=== PATIENT | male | born 1955 | race Caucasian/White ===

== ENCOUNTER 2017-05-11 10:46 | Day surgery (SDC) | payer MEDICARE, MEDICAID ==
[2017-05-11] VITALS (8 sets, daily range): BP systolic 95–163; BP diastolic 59–92
[~2017-05-11 10:46] MED LIST: ALB0.5UD IH; FURO80TA3 PO; GABA-532 PO; LABE200T PO; LEVO200T8 PO; NOVRI SQ; NPH,100V2 SQ; PRAV20TA4 PO; QUET100T33 PO; TRAZ150T78 PO
[2017-05-11] MEDS ORDERED: normal saline 1000ml 1,000 ML IV SCH (11:20)
[2017-05-11] MEDS ORDERED: CALC667T5 PO (12:10)
[2017-05-11] MEDS ORDERED: METO-292 PO (12:10)
[2017-05-11 12:22] LABS: BASOPHILS # (AUTO) 0.1 X10'3 (0-0.2); BASOPHILS % (AUTO) 0.7 % (0-1); EOSINOPHILS # (AUTO) 0.2 X10'3 (0-0.9); EOSINOPHILS % (AUTO) 3.1 % (0-6); HEMOGLOBIN 13.3 g/dl (14.0-17.9); LYMPHOCYTES # (AUTO) 1.6 X10'3 (1.1-4.8); LYMPHOCYTES % (AUTO) 22.1 % (21-51); MEAN CORPUSCULAR HEMOGLOBIN 30.9 PG (27.0-31.0); MEAN CORPUSCULAR HGB CONC 33.2 % (33.0-36.5); MEAN PLATELET VOLUME 8.9 FL (7.4-10.4); MONOCYTES # (AUTO) 0.4 X10'3 (0-0.9); MONOCYTES % (AUTO) 5.8 % (2-12); NEUTROPHILS # (AUTO) 4.9 X10'3 (1.8-7.7); NEUTROPHILS % (AUTO) 68.3 % (42-75); PLATELET COUNT 152 X10'3 (140-440); WHITE BLOOD COUNT 7.2 X10'3 (4.5-11.0)
[2017-05-11] MEDS ORDERED: midazolam 2 mg/2 ml injection IV PRN (13:00)
[2017-05-11] MEDS ORDERED: fentaNYL/PF 50MCG/1 ML 2ML syringe IV PRN (13:00)
[2017-05-11] MEDS ORDERED: LIDOcaine 1%/PF (10mg/ml) 5ml vial SQ ONE (13:00)
[2017-05-11] MEDS ORDERED: LIDOcaine 1%/PF (10mg/ml) 5ml vial ONE (13:02)
[2017-05-11] MEDS ORDERED: iohexol 300mg/ml 100ml inj. ONE (13:02)
[2017-05-11] MEDS ORDERED: fentaNYL/PF 50MCG/1 ML 2ML syringe ONE ×2 (13:20→14:05)
[2017-05-11] MEDS ORDERED: heparin 1,000 UNITS/NS 500ml 500 ML ONE (13:20)
[2017-05-11] MEDS ORDERED: midazolam 2 mg/2 ml injection ONE ×2 (13:20→14:05)
== END 2017-05-11 16:07 | disposition home or self-care (01) ==
LOC: SSTAY O 10:46
PROVIDERS: ATTEND Radiology Diagnostic Radiology
DX: Z03.89 Encounter for observation for other suspected diseases and conditions ruled out (principal); E11.22 Type 2 diabetes mellitus with diabetic chronic kidney disease; N18.6 End stage renal disease; F32.9 Major depressive disorder, single episode, unspecified; F41.9 Anxiety disorder, unspecified; Z88.5 Allergy status to narcotic agent; Z99.2 Dependence on renal dialysis; Z79.899 Other long term (current) drug therapy
CPT/HCPCS: 36415; 36901; 76937; 85025; 99152; 99153; A6257; C1769; C1894; J1644; J2001; J2250; J3010; J7030; Q9967; A4620

== ENCOUNTER 2017-05-25 08:35 | Outpatient (CLI) | payer MEDICARE, MEDICAID ==
[~2017-05-25] VITALS: Ht 195.6 cm; Wt 72.6 kg
[~2017-05-25 08:35] MED LIST changes: -ALB0.5UD IH; +CALC667T5 PO; -GABA-532 PO; +METO-292 PO; -NOVRI SQ; -NPH,100V2 SQ
[2017-05-25] MEDS ORDERED: INSULIN NPH SQ (09:43)
[2017-05-25] MEDS ORDERED: INSU100V30 SQ (09:43)
[2017-05-25] MEDS ORDERED: ALB0.5UD IH (09:43)
[2017-05-25] MEDS ORDERED: LORA1TAB PO (09:43)
[2017-05-25] MEDS ORDERED: GABA-532 PO (09:43)
[2017-05-25] MEDS ORDERED: INSULIN N PO (09:43)
[2017-05-25 09:56] LABS: BASOPHILS # (AUTO) 0.1 X10'3 (0-0.2); BASOPHILS % (AUTO) 1.2 % (0-1); EOSINOPHILS # (AUTO) 0.2 X10'3 (0-0.9); EOSINOPHILS % (AUTO) 2.6 % (0-6); LYMPHOCYTES # (AUTO) 1.5 X10'3 (1.1-4.8); LYMPHOCYTES % (AUTO) 21.1 % (21-51); MEAN CORPUSCULAR HEMOGLOBIN 30.8 PG (27.0-31.0); MEAN CORPUSCULAR VOLUME 93.5 FL (78-98); MONOCYTES # (AUTO) 0.4 X10'3 (0-0.9); MONOCYTES % (AUTO) 6.1 % (2-12); PRE OP HEMATOCRIT 38.8 % (42.0-52.0); PRE OP HEMOGLOBIN 12.8 g/dL (14.0-17.9); PRE OP PLATELET COUNT 128 X10'3 (140-440); RED BLOOD COUNT 4.15 X10'6 (4.70-6.10)
[2017-05-25 10:06] LABS: HEMOGLOBIN A1C 6.1 % (4.5-6.2)
[2017-05-25 10:10] LABS: ALBUMIN 3.4 G/DL (3.4-5.0); ALKALINE PHOSPHATASE 79 IU/L (46-116); BLOOD UREA NITROGEN 25 MG/DL (7-18); BUN/CREATININE RATIO 5.6 (5.4-32.0); CALCIUM 8.5 MG/DL (8.5-10.1); CHLORIDE 102 MMOL/L (99-107); CREATININE 4.45 MG/DL (0.60-1.10); PRE OP ALT 23 U/L (30-65); PRE OP ANION GAP 7 (8-16); PRE OP AST 17 U/L (10-37); PRE OP BILIRUB, TOTAL 0.6 MG/DL (0.0-1.0); PRE OP GLUCOSE 157 MG/DL (70-104); PRE OP POTASSIUM 4.8 MMOL/L (3.4-5.1); PRE OP SODIUM 144 MMOL/L (135-145); TOTAL CARBON DIOXIDE 34.8 MMOL/L (24-32); TOTAL PROTEIN 6.8 G/DL (6.4-8.2); eGFR 14 ML/MIN
[2017-05-27] MEDS ORDERED: ringers solution, lacted 1,000 ML IV SCH (05:00)
[2017-05-27] MEDS ORDERED: famotidine 20mg tablet PO ONE (05:30)
[2017-05-27] MEDS ORDERED: cefazolin/dext.iso 2gm/50ml 50 ML IV ONE (05:30)
[2017-05-27] MEDS ORDERED: DOCUMENT DATE & TIME OF BETA-BLOCKER PO ONE (05:30)
== END 2017-05-25 23:59 | disposition home or self-care (01) ==
LOC: PRE-OP 08:35 → EDSTATUS 05-27 14:00
PROVIDERS: ATTEND Surgery
DX: Z01.818 Encounter for other preprocedural examination (principal); N18.6 End stage renal disease; E11.9 Type 2 diabetes mellitus without complications; D64.9 Anemia, unspecified; J45.909 Unspecified asthma, uncomplicated; E03.9 Hypothyroidism, unspecified; F12.90 Cannabis use, unspecified, uncomplicated
CPT/HCPCS: 36415; 80053; 83036; 85025

== ENCOUNTER 2018-01-14 13:38 | Emergency (ER) | payer MEDICARE, MEDICAID ==
[~2018-01-14] VITALS: Ht 195.6 cm; Wt 172.0 kg
[~2018-01-14 13:38] MED LIST changes: +ALB0.5UD IH; -CALC667T5 PO; +GABA-532 PO; +INSU100V30 SQ; +INSULIN NPH SQ; -LABE200T PO; +LABE200T5 PO; +LORA1TAB PO; -METO-292 PO
[2018-01-14 14:30] LABS: BASOPHILS % (AUTO) 0.5 % (0-1); EOSINOPHILS # (AUTO) 0.3 X10'3 (0-0.9); EOSINOPHILS % (AUTO) 3.3 % (0-6); HEMATOCRIT 36.2 % (42.0-52.0); HEMOGLOBIN 11.9 g/dl (14.0-17.9); LYMPHOCYTES # (AUTO) 1.2 X10'3 (1.1-4.8); LYMPHOCYTES % (AUTO) 14.3 % (21-51); MEAN CORPUSCULAR HEMOGLOBIN 31.1 PG (27.0-31.0); MEAN CORPUSCULAR HGB CONC 32.9 % (33.0-36.5); MEAN CORPUSCULAR VOLUME 94.5 FL (78-98); MEAN PLATELET VOLUME 8.6 FL (7.4-10.4); MONOCYTES # (AUTO) 0.5 X10'3 (0-0.9); MONOCYTES % (AUTO) 6.2 % (2-12); NEUTROPHILS # (AUTO) 6.3 X10'3 (1.8-7.7); NEUTROPHILS % (AUTO) 75.7 % (42-75); PLATELET COUNT 151 X10'3 (140-440); RED BLOOD COUNT 3.83 X10'6 (4.70-6.10); RED CELL DISTRIBUTION WIDTH 14.1 % (11.5-14.5); WHITE BLOOD COUNT 8.3 X10'3 (4.5-11.0)
[2018-01-14 14:48] LABS: ALANINE AMINOTRANSFERASE 25 U/L (12-78); ALBUMIN 3.4 G/DL (3.4-5.0); ALBUMIN/GLOBULIN RATIO 0.9 (1.1-1.5); ALKALINE PHOSPHATASE 72 IU/L (46-116); ANION GAP 3 (8-16); ASPARTATE AMINO TRANSFERASE 16 U/L (10-37); BILIRUBIN,TOTAL 0.8 MG/DL (0.1-1.0); BLOOD UREA NITROGEN 11 MG/DL (7-18); CALCIUM 8.7 MG/DL (8.5-10.1); CHLORIDE 99 MMOL/L (99-107); CREATININE 2.62 MG/DL (0.60-1.10); ETHANOL < 0.010 GM/DL (0.0-0.010); GLUCOSE 200 MG/DL (70-104); SODIUM 140 MMOL/L (135-145); TOTAL CARBON DIOXIDE 38.3 MMOL/L (24-32); TOTAL PROTEIN 7.2 G/DL (6.4-8.2); eGFR 25 ML/MIN
[2018-01-14 14:52] LABS: BUN/CREATININE RATIO 4.2 (5.4-32.0)
[2018-01-14] MEDS ORDERED: albuterol 2.5 MG/3 ML nebule ONE (17:49)
[2018-01-14] MEDS ORDERED: albuterol 2.5 MG/3 ML nebule NEB PRN (17:55)
[2018-01-14 17:58] VITALS: BP 132/60
[2018-01-14] MEDS ORDERED: LORazepam 1 MG tablet PO PRN ×2 (19:35)
[2018-01-14] MEDS ORDERED: albuterol 2.5 mg/0.5ml nebule NEB PRN (19:35)
[2018-01-14] MEDS ORDERED: traZODone 150mg tablet PO PRN (19:35)
[2018-01-14] MEDS ORDERED: FUROSEMIDE 80 MG PO SCH (20:00)
[2018-01-14] MEDS ORDERED: furosemide 40mg tablet PO SCH (20:00)
[2018-01-14] MEDS ORDERED: quetiapine 100mg tablet PO SCH (21:00)
[2018-01-14] MEDS ORDERED: levoTHYROXINE 100mcg tablet PO SCH (21:00)
[2018-01-14] MEDS ORDERED: gabapentin 300mg capsule PO SCH (21:00)
[2018-01-14] MEDS ORDERED: non-formulary drug (Pravastatin Sodium 20 MG) PO SCH (21:00)
[2018-01-14] MEDS ORDERED: NPH, human insulin isophane inj. SQ SCH (21:00)
[2018-01-14] MEDS ORDERED: atorvastatin 10mg tablet PO SCH (21:00)
[2018-01-14] MEDS ORDERED: INSULIN NPH SQ SCH (21:00)
== END 2018-01-14 20:26 ==
LOC: ER 13:38
DX: F32.9 Major depressive disorder, single episode, unspecified (principal); R45.851 Suicidal ideations; N18.6 End stage renal disease; E11.22 Type 2 diabetes mellitus with diabetic chronic kidney disease; E11.42 Type 2 diabetes mellitus with diabetic polyneuropathy; E11.65 Type 2 diabetes mellitus with hyperglycemia; G89.29 Other chronic pain; J45.909 Unspecified asthma, uncomplicated; Z88.5 Allergy status to narcotic agent; Z79.4 Long term (current) use of insulin; Z79.899 Other long term (current) drug therapy
CPT/HCPCS: 36415; 80053; 80320; 82948; 85025; 94640; 94760; 99285; J7611

== ENCOUNTER 2018-01-14 18:18 | Inpatient (IN) | payer MEDICARE, MEDICAID ==
[~2018-01-14] VITALS: Ht 195.6 cm; Wt 172.4 kg
[2018-01-14] MEDS ORDERED: pravastatin 10mg tablet PO ONE (21:35)
[2018-01-14] MEDS ORDERED: traZODone 150mg tablet PO ONE (21:35)
[2018-01-14] MEDS ORDERED: quetiapine 100mg tablet PO ONE (21:35)
[2018-01-14] MEDS ORDERED: LORazepam 1 MG tablet PO PRN (21:35)
[2018-01-14] MEDS ORDERED: gabapentin 300mg capsule PO ONE (21:35)
[2018-01-14] MEDS ORDERED: atorvastatin 10mg tablet PO ONE (21:50)
[2018-01-15] MEDS ORDERED: LORazepam 1 MG tablet PO PRN (00:20)
[2018-01-15 00:47] VITALS: BP 145/61
[2018-01-15] MEDS ORDERED: acetaminophen 325mg tablet PO PRN (03:15)
[2018-01-15] MEDS ORDERED: glucagon, human recombinant 1mg kit SUBCUT PRN (03:15)
[2018-01-15] MEDS ORDERED: MESSAGE TO PHARMACY PO ONE (03:15)
[2018-01-15] MEDS ORDERED: insulin Lispro (HumaLOG) vial - multi-dose SQ SCH ×3 (03:15→14:04)
[2018-01-15] MEDS ORDERED: dextrose ORAL solution 15 GM/59 ML bottle PO PRN ×2 (03:15)
[2018-01-15] MEDS ORDERED: dextrose 50%-water 50ml dispensing syringe IV PRN ×2 (03:15)
[2018-01-15] MEDS ORDERED: quetiapine 100mg tablet PO SCH (08:00)
[2018-01-15] MEDS: levoTHYROXINE 100mcg tablet PO SCH (08:02)
[2018-01-15] MEDS: furosemide 40mg tablet PO SCH ×2 (08:02→20:49)
[2018-01-15 08:05] VITALS: BP 131/61
[2018-01-15] MEDS: LORazepam 1 MG tablet PO PRN (09:34)
[2018-01-15] MEDS: albuterol 2.5 MG/3 ML nebule NEB PRN ×2 (09:46→22:04)
[2018-01-15] MEDS: insulin Lispro (HumaLOG) vial - multi-dose SQ SCH ×2 (14:16→18:42)
[2018-01-15] MEDS ORDERED: lurasidone 20mg tablet PO SCH (17:00)
[2018-01-15] MEDS: calcium acetate 667mg (PhosLO) capsule PO SCH (18:47)
[2018-01-15 20:00] VITALS: BP 166/69
[2018-01-15] MEDS: NPH, human insulin isophane inj. SQ SCH (20:42)
[2018-01-15] MEDS: baclofen 10mg tablet PO PRN (20:49)
[2018-01-15] MEDS: gabapentin 300mg capsule PO SCH (20:49)
[2018-01-15] MEDS: traZODone 150mg tablet PO PRN (20:50)
[2018-01-15] MEDS: pravastatin 40mg tablet PO SCH (20:50)
[2018-01-15 20:57] LABS: BASOPHILS # (AUTO) 0.1 X10'3 (0-0.2); BASOPHILS % (AUTO) 1.4 % (0-1); EOSINOPHILS # (AUTO) 0.2 X10'3 (0-0.9); EOSINOPHILS % (AUTO) 2.2 % (0-6); HEMATOCRIT 34.1 % (42.0-52.0); HEMOGLOBIN 11.2 g/dl (14.0-17.9); LYMPHOCYTES # (AUTO) 1.8 X10'3 (1.1-4.8); LYMPHOCYTES % (AUTO) 16.9 % (21-51); MEAN CORPUSCULAR HEMOGLOBIN 30.9 PG (27.0-31.0); MEAN CORPUSCULAR HGB CONC 32.7 % (33.0-36.5); MEAN CORPUSCULAR VOLUME 94.5 FL (78-98); MEAN PLATELET VOLUME 8.9 FL (7.4-10.4); MONOCYTES # (AUTO) 0.6 X10'3 (0-0.9); MONOCYTES % (AUTO) 5.9 % (2-12); NEUTROPHILS # (AUTO) 7.7 X10'3 (1.8-7.7); NEUTROPHILS % (AUTO) 73.6 % (42-75); PLATELET COUNT 142 X10'3 (140-440); RED BLOOD COUNT 3.61 X10'6 (4.70-6.10); RED CELL DISTRIBUTION WIDTH 14.3 % (11.5-14.5); WHITE BLOOD COUNT 10.4 X10'3 (4.5-11.0)
[2018-01-15] MEDS ORDERED: insulin glargine (Lantus) pen - multi-dose SQ SCH (21:00)
[2018-01-15] MEDS ORDERED: [UNRECOGNIZED DRUG - OTHER] PO SCH (21:00)
[2018-01-15] MEDS ORDERED: quetiapine 100mg tablet PO PRN (21:00)
[2018-01-15 21:11] LABS: ALBUMIN 3.2 G/DL (3.4-5.0); ANION GAP 4 (8-16); BLOOD UREA NITROGEN 39 MG/DL (7-18); BUN/CREATININE RATIO 8.2 (5.4-32.0); CALCIUM 8.5 MG/DL (8.5-10.1); CHLORIDE 95 MMOL/L (99-107); CREATININE 4.75 MG/DL (0.60-1.10); GLUCOSE 222 MG/DL (70-104); PHOSPHORUS 4.1 MG/DL (2.3-4.5); POTASSIUM 4.2 MMOL/L (3.5-5.1); SODIUM 135 MMOL/L (135-145); TOTAL CARBON DIOXIDE 35.9 MMOL/L (24-32); eGFR 13 ML/MIN
[2018-01-16] MEDS: furosemide 40mg tablet PO SCH ×2 (07:43→21:18)
[2018-01-16] MEDS: levoTHYROXINE 100mcg tablet PO SCH (07:43)
[2018-01-16 08:00] VITALS: BP 128/57
[2018-01-16] MEDS: calcium acetate 667mg (PhosLO) capsule PO SCH ×3 (08:18→17:43)
[2018-01-16] MEDS: insulin Lispro (HumaLOG) vial - multi-dose SQ SCH ×4 (09:00→21:11)
[2018-01-16 09:30] LABS: CHOL/HDL RATIO 4.3 (0.00-4.99); CHOLESTEROL 134 MG/DL (0-200); HDL CHOLESTEROL 31 MG/DL (35-60); LDL CHOLESTEROL 81 MG/DL (50-100); TRIGLYCERIDES 122 MG/DL (20-135)
[2018-01-16] MEDS ORDERED: acetaminophen 325mg tablet PO PRN (13:05)
[2018-01-16] MEDS: LORazepam 1 MG tablet PO PRN (13:13)
[2018-01-16] MEDS: lurasidone 60mg tablet PO SCH (17:43)
[2018-01-16 20:00] VITALS: BP 169/73
[2018-01-16] MEDS: NPH, human insulin isophane inj. SQ SCH (21:10)
[2018-01-16] MEDS: traZODone 150mg tablet PO PRN (21:18)
[2018-01-16] MEDS: baclofen 10mg tablet PO PRN (21:18)
[2018-01-16] MEDS: gabapentin 300mg capsule PO SCH (21:18)
[2018-01-16] MEDS: pravastatin 40mg tablet PO SCH (21:22)
[2018-01-17] MEDS: furosemide 40mg tablet PO SCH ×2 (07:38→21:24)
[2018-01-17] MEDS: levoTHYROXINE 100mcg tablet PO SCH (07:38)
[2018-01-17 08:00] VITALS: BP 146/77
[2018-01-17] MEDS ORDERED: albumin (human) 25% 100ml IV 100 ML IV PRN (08:00)
[2018-01-17] MEDS ORDERED: heparin 1,000unit/ml 10ml vial 10 ML IV ONE (08:00)
[2018-01-17] MEDS ORDERED: heparin 1,000 units/ml 10ml inj IV ONE (08:00)
[2018-01-17] MEDS: calcium acetate 667mg (PhosLO) capsule PO SCH ×3 (08:00→19:16)
[2018-01-17] MEDS: insulin Lispro (HumaLOG) vial - multi-dose SQ SCH ×3 (08:50→18:00)
[2018-01-17] MEDS: LORazepam 1 MG tablet PO PRN ×2 (09:58→19:29)
[2018-01-17] MEDS ORDERED: LORazepam 1 MG tablet PO ONE (13:45)
[2018-01-17] MEDS: lurasidone 60mg tablet PO SCH (19:16)
[2018-01-17] MEDS: baclofen 10mg tablet PO PRN (19:24)
[2018-01-17 20:11] VITALS: BP 113/68
[2018-01-17] MEDS ORDERED: buprenorphine/naloxone 2-0.5mg sublingual tablet SL SCH (21:00)
[2018-01-17] MEDS: pravastatin 40mg tablet PO SCH (21:25)
[2018-01-17] MEDS: gabapentin 300mg capsule PO SCH (21:25)
[2018-01-17] MEDS: NPH, human insulin isophane inj. SQ SCH (21:32)
[2018-01-17] MEDS ORDERED: buprenorphine/naloxone 2-0.5mg sublingual tablet SL ONE (22:00)
[2018-01-18] VITALS (9 sets, daily range): BP systolic 100–168; BP diastolic 48–83
[2018-01-18] MEDS ORDERED: clotrimazole/betamethasone diproprion. cream 15gm TP SCH (08:00)
[2018-01-18] MEDS ORDERED: duloxetine 30mg CAPSULE.DR PO SCH (08:00)
[2018-01-18 08:49] LABS: BASOPHILS # (AUTO) 0.1 X10'3 (0-0.2); BASOPHILS % (AUTO) 0.5 % (0-1); EOSINOPHILS # (AUTO) 0.3 X10'3 (0-0.9); EOSINOPHILS % (AUTO) 2.7 % (0-6); HEMATOCRIT 35.5 % (42.0-52.0); LYMPHOCYTES # (AUTO) 1.6 X10'3 (1.1-4.8); LYMPHOCYTES % (AUTO) 14.3 % (21-51); MEAN CORPUSCULAR HEMOGLOBIN 31.7 PG (27.0-31.0); MEAN CORPUSCULAR HGB CONC 33.7 % (33.0-36.5); MEAN CORPUSCULAR VOLUME 94.1 FL (78-98); MEAN PLATELET VOLUME 9.3 FL (7.4-10.4); MONOCYTES # (AUTO) 0.9 X10'3 (0-0.9); MONOCYTES % (AUTO) 8.3 % (2-12); NEUTROPHILS # (AUTO) 8.4 X10'3 (1.8-7.7); NEUTROPHILS % (AUTO) 74.2 % (42-75); PLATELET COUNT 163 X10'3 (140-440); RED BLOOD COUNT 3.77 X10'6 (4.70-6.10); RED CELL DISTRIBUTION WIDTH 14.6 % (11.5-14.5); WHITE BLOOD COUNT 11.4 X10'3 (4.5-11.0)
[2018-01-18 08:54] LABS: ALANINE AMINOTRANSFERASE 27 U/L (12-78); ALBUMIN 3.4 G/DL (3.4-5.0); ALBUMIN/GLOBULIN RATIO 0.9 (1.1-1.5); ALKALINE PHOSPHATASE 66 IU/L (46-116); ANION GAP 6 (8-16); ASPARTATE AMINO TRANSFERASE 21 U/L (10-37); BILIRUBIN,TOTAL 0.7 MG/DL (0.1-1.0); BLOOD UREA NITROGEN 42 MG/DL (7-18); BUN/CREATININE RATIO 8.2 (5.4-32.0); CALCIUM 8.6 MG/DL (8.5-10.1); CHLORIDE 95 MMOL/L (99-107); CREATININE 5.13 MG/DL (0.60-1.10); GLUCOSE 188 MG/DL (70-104); POTASSIUM 5.5 MMOL/L (3.5-5.1); SODIUM 135 MMOL/L (135-145); TOTAL CARBON DIOXIDE 34.4 MMOL/L (24-32); TOTAL PROTEIN 7.2 G/DL (6.4-8.2); eGFR 12 ML/MIN
[2018-01-18] MEDS ORDERED: glucagon, human recombinant 1mg kit SUBCUT PRN (11:00)
[2018-01-18] MEDS ORDERED: dextrose 50%-water 50ml dispensing syringe IV PRN ×2 (11:00)
[2018-01-18] MEDS ORDERED: dextrose ORAL solution 15 GM/59 ML bottle PO PRN ×2 (11:00)
[2018-01-18] MEDS ORDERED: insulin Lispro (HumaLOG) vial - multi-dose SQ SCH (11:00)
[2018-01-18] MEDS ORDERED: MESSAGE TO PHARMACY PO ONE (11:00)
[2018-01-18] MEDS ORDERED: BUPR1TAB52 SL (20:15)
[2018-01-18] MEDS ORDERED: BACL10TA PO (20:16)
[2018-01-18] MEDS ORDERED: PHO667C PO (20:17)
[2018-01-18] MEDS ORDERED: LURA60TA2 PO (20:18)
[2018-01-18] MEDS ORDERED: TRAZ150T78 PO (20:18)
[2018-01-18] MEDS ORDERED: QUET200T PO (20:19)
[2018-01-18] MEDS ORDERED: insulin glargine (Lantus) pen - multi-dose SQ SCH (21:00)
== END 2018-01-18 08:39 | disposition short-term general hospital (02) | DRG 885 ==
LOC: ADULT MH 18:18
PROVIDERS: ADMIT Psychiatry & Neurology Psychiatry; ATTEND Psychiatry & Neurology Psychiatry
PROC: 5A09357 Assistance with Respiratory Ventilation, Less than 24 Consecutive Hours, Continuous Positive Airway Pressure (ICD-10-PCS; principal; 2018-01-14)
PROC: 5A09357 Assistance with Respiratory Ventilation, Less than 24 Consecutive Hours, Continuous Positive Airway Pressure (ICD-10-PCS; 2018-01-16)
PROC: 5A1D70Z Performance of Urinary Filtration, Intermittent, Less than 6 Hours Per Day (ICD-10-PCS; 2018-01-17)
PROC: 5A09357 Assistance with Respiratory Ventilation, Less than 24 Consecutive Hours, Continuous Positive Airway Pressure (ICD-10-PCS; 2018-01-18)
DX: F33.3 Major depressive disorder, recurrent, severe with psychotic symptoms (principal); N18.6 End stage renal disease; R45.851 Suicidal ideations; Z68.42 Body mass index [BMI] 45.0-49.9, adult; I12.0 Hypertensive chronic kidney disease with stage 5 chronic kidney disease or end stage renal disease; E11.22 Type 2 diabetes mellitus with diabetic chronic kidney disease; F41.9 Anxiety disorder, unspecified; E66.01 Morbid (severe) obesity due to excess calories; Z60.2 Problems related to living alone; G89.29 Other chronic pain; M48.00 Spinal stenosis, site unspecified; D64.9 Anemia, unspecified; F43.10 Post-traumatic stress disorder, unspecified; F11.11 Opioid abuse, in remission; F15.11 Other stimulant abuse, in remission; M54.9 Dorsalgia, unspecified; R34 Anuria and oliguria; G47.33 Obstructive sleep apnea (adult) (pediatric); Z99.2 Dependence on renal dialysis; Z99.3 Dependence on wheelchair; Z79.899 Other long term (current) drug therapy; Z79.4 Long term (current) use of insulin; Z88.5 Allergy status to narcotic agent; Z87.891 Personal history of nicotine dependence
CPT/HCPCS: 36415; 71045; 80053; 80061; 80069; 82948; 83036; 85025; 87070; 94640; 94660; 94760; G0257; J1644; J1815

== ENCOUNTER 2018-01-18 09:38 | Inpatient (IN) | payer MEDICARE, MEDICAID ==
[~2018-01-18] VITALS: Ht 195.6 cm; Wt 172.4 kg
[2018-01-18] MEDS ORDERED: MESSAGE TO PHARMACY PO ONE (11:05)
[2018-01-18] MEDS ORDERED: dextrose ORAL solution 15 GM/59 ML bottle PO PRN ×2 (11:10)
[2018-01-18] MEDS ORDERED: insulin Lispro (HumaLOG) vial - multi-dose SQ SCH (11:10)
[2018-01-18] MEDS ORDERED: dextrose 50%-water 50ml dispensing syringe IV PRN ×2 (11:10)
[2018-01-18] MEDS ORDERED: glucagon, human recombinant 1mg kit SUBCUT PRN (11:10)
[2018-01-18] MEDS ORDERED: ondansetron/PF 4mg/2ml inj IV PRN (14:00)
[2018-01-18] MEDS ORDERED: acetaminophen 325mg tablet PO PRN ×2 (14:00)
[2018-01-18 18:00] VITALS: BP 136/79
[2018-01-18 19:00] VITALS: BP 144/74
[2018-01-18 20:00] VITALS: BP 172/72
[2018-01-18] MEDS: docusate sod 100mg capsule PO SCH (20:00)
[2018-01-18] MEDS ORDERED: BUPR1TAB52 SL (20:15)
[2018-01-18] MEDS ORDERED: BACL10TA PO (20:16)
[2018-01-18] MEDS ORDERED: PHO667C PO (20:17)
[2018-01-18] MEDS ORDERED: LURA60TA2 PO (20:18)
[2018-01-18] MEDS ORDERED: TRAZ150T78 PO (20:18)
[2018-01-18] MEDS ORDERED: QUET200T PO (20:19)
[2018-01-18] MEDS ORDERED: ipratropium/albuterol 3ml nebule NEB PRN (20:25)
[2018-01-18] MEDS: atorvastatin 20mg tablet PO SCH (20:59)
[2018-01-18] MEDS: gabapentin 300mg capsule PO SCH (20:59)
[2018-01-18] MEDS: levoTHYROXINE 100mcg tablet PO SCH (20:59)
[2018-01-18 21:00] VITALS: BP 162/84
[2018-01-18] MEDS: insulin glargine (Lantus) pen - multi-dose SQ SCH (21:00)
[2018-01-18] MEDS ORDERED: lurasidone 60mg tablet PO SCH (21:00)
[2018-01-18] MEDS: heparin, porcine 5000 units/ml vial SQ SCH (21:07)
[2018-01-18 22:00] VITALS: BP 159/66
[2018-01-18 23:00] VITALS: BP 152/78
[2018-01-19] VITALS (22 sets, daily range): BP systolic 97–190; BP diastolic 48–105
[2018-01-19 04:35] LABS: BASOPHILS # (AUTO) 0.1 X10'3 (0-0.2); BASOPHILS % (AUTO) 0.5 % (0-1); EOSINOPHILS # (AUTO) 0.3 X10'3 (0-0.9); EOSINOPHILS % (AUTO) 2.4 % (0-6); HEMATOCRIT 34.8 % (42.0-52.0); HEMOGLOBIN 11.5 g/dl (14.0-17.9); LYMPHOCYTES # (AUTO) 1.6 X10'3 (1.1-4.8); LYMPHOCYTES % (AUTO) 14.4 % (21-51); MEAN CORPUSCULAR HEMOGLOBIN 30.9 PG (27.0-31.0); MEAN CORPUSCULAR VOLUME 93.7 FL (78-98); MEAN PLATELET VOLUME 9.4 FL (7.4-10.4); MONOCYTES # (AUTO) 0.8 X10'3 (0-0.9); MONOCYTES % (AUTO) 7.2 % (2-12); NEUTROPHILS # (AUTO) 8.3 X10'3 (1.8-7.7); NEUTROPHILS % (AUTO) 75.5 % (42-75); PLATELET COUNT 147 X10'3 (140-440); RED BLOOD COUNT 3.72 X10'6 (4.70-6.10); RED CELL DISTRIBUTION WIDTH 14.7 % (11.5-14.5); WHITE BLOOD COUNT 10.9 X10'3 (4.5-11.0)
[2018-01-19 04:43] LABS: ALANINE AMINOTRANSFERASE 27 U/L (12-78); ALBUMIN 3.2 G/DL (3.4-5.0); ALBUMIN/GLOBULIN RATIO 0.9 (1.1-1.5); ALKALINE PHOSPHATASE 62 IU/L (46-116); ANION GAP 8 (8-16); ASPARTATE AMINO TRANSFERASE 27 U/L (10-37); BILIRUBIN,TOTAL 0.7 MG/DL (0.1-1.0); BLOOD UREA NITROGEN 55 MG/DL (7-18); BUN/CREATININE RATIO 8.5 (5.4-32.0); CALCIUM 8.1 MG/DL (8.5-10.1); CHLORIDE 95 MMOL/L (99-107); CREATININE 6.46 MG/DL (0.60-1.10); GLUCOSE 139 MG/DL (70-104); MAGNESIUM 2.4 MG/DL (1.5-2.4); PHOSPHORUS 6.3 MG/DL (2.3-4.5); POTASSIUM 5.8 MMOL/L (3.5-5.1); SODIUM 135 MMOL/L (135-145); TOTAL CARBON DIOXIDE 31.7 MMOL/L (24-32); TOTAL PROTEIN 6.8 G/DL (6.4-8.2); eGFR 9 ML/MIN
[2018-01-19] MEDS: calcium acetate 667mg (PhosLO) capsule PO SCH ×3 (07:42→17:51)
[2018-01-19] MEDS: furosemide 40mg tablet PO SCH ×2 (07:42→20:48)
[2018-01-19] MEDS: docusate sod 100mg capsule PO SCH ×2 (07:43→20:00)
[2018-01-19] MEDS: heparin, porcine 5000 units/ml vial SQ SCH ×2 (07:44→20:50)
[2018-01-19] MEDS ORDERED: epoetin 20,000 units/ml inj IV ONE (08:00)
[2018-01-19] MEDS ORDERED: LIDOcaine 1% (10mg/ml) 2ml vial SQ ONE (08:00)
[2018-01-19] MEDS ORDERED: heparin 1,000 units/ml 10ml inj IV ONE (08:00)
[2018-01-19] MEDS ORDERED: normal saline 1000ml 250 ML IV PRN (08:00)
[2018-01-19 10:06] LABS: ABG BASE EXCESS 3.7 mmol/L (-2.0-3.0); ABG HCO3 31.3 mmol/L (22.0-26.0); ABG OXYGEN SATURATION 90.1 % (95-98); ABG PH (T) 7.321 (7.350-7.450); ABG PO2 (T) 60.8 mmHg (83-108); FCOHb 1.3 % (0.5-1.5); FMetHb 0.1 % (0.3-1.12); FO2Hb 88.8 % (94-100); MINUTE VOLUME 13 L/min; RESPIRATORY RATE 16 b/min; RESPIRATORY RATE (OBSERVED) 17 b/min; TOTAL HEMOGLOBIN 12.6 G/dl (14.0-18.0)
[2018-01-19] MEDS ORDERED: traZODone 150mg tablet PO PRN (11:55)
[2018-01-19 12:41] LABS: ABG HCO3 29.8 mmol/L (22.0-26.0); ABG PCO2 (T) 59.4 mmHg (35.0-48.0); ABG PH (T) 7.318 (7.350-7.450); ABG PO2 (T) 47.2 mmHg (83-108); ALLEN'S TEST Positive
[2018-01-19] MEDS: atorvastatin 20mg tablet PO SCH (20:48)
[2018-01-19] MEDS: levoTHYROXINE 100mcg tablet PO SCH (20:48)
[2018-01-19] MEDS: gabapentin 300mg capsule PO SCH (20:48)
[2018-01-19] MEDS: insulin glargine (Lantus) pen - multi-dose SQ SCH (21:00)
[2018-01-19] MEDS ORDERED: haloperidol 1mg tablet PO SCH (21:00)
[2018-01-19] MEDS ORDERED: buprenorphine/naloxone 2-0.5mg sublingual tablet SL SCH (21:00)
[2018-01-20] VITALS (12 sets, daily range): BP systolic 117–180; BP diastolic 55–87
[2018-01-20 05:29] LABS: BASOPHILS % (AUTO) 0.3 % (0-1); EOSINOPHILS # (AUTO) 0.4 X10'3 (0-0.9); EOSINOPHILS % (AUTO) 3.7 % (0-6); HEMATOCRIT 36.1 % (42.0-52.0); HEMOGLOBIN 11.8 g/dl (14.0-17.9); LYMPHOCYTES # (AUTO) 2.3 X10'3 (1.1-4.8); LYMPHOCYTES % (AUTO) 19.6 % (21-51); MEAN CORPUSCULAR HEMOGLOBIN 30.9 PG (27.0-31.0); MEAN CORPUSCULAR HGB CONC 32.8 % (33.0-36.5); MEAN CORPUSCULAR VOLUME 94.2 FL (78-98); MEAN PLATELET VOLUME 9.6 FL (7.4-10.4); MONOCYTES # (AUTO) 0.9 X10'3 (0-0.9); MONOCYTES % (AUTO) 7.9 % (2-12); NEUTROPHILS # (AUTO) 8.1 X10'3 (1.8-7.7); NEUTROPHILS % (AUTO) 68.5 % (42-75); PLATELET COUNT 150 X10'3 (140-440); RED BLOOD COUNT 3.83 X10'6 (4.70-6.10); RED CELL DISTRIBUTION WIDTH 14.6 % (11.5-14.5); WHITE BLOOD COUNT 11.8 X10'3 (4.5-11.0)
[2018-01-20 05:54] LABS: ALANINE AMINOTRANSFERASE 28 U/L (12-78); ALBUMIN 3.4 G/DL (3.4-5.0); ALBUMIN/GLOBULIN RATIO 0.9 (1.1-1.5); ALKALINE PHOSPHATASE 61 IU/L (46-116); ANION GAP 10 (8-16); ASPARTATE AMINO TRANSFERASE 35 U/L (10-37); BILIRUBIN,TOTAL 0.9 MG/DL (0.1-1.0); BLOOD UREA NITROGEN 37 MG/DL (7-18); BUN/CREATININE RATIO 7.5 (5.4-32.0); CALCIUM 8.3 MG/DL (8.5-10.1); CHLORIDE 98 MMOL/L (99-107); CREATININE 4.95 MG/DL (0.60-1.10); GLUCOSE 110 MG/DL (70-104); MAGNESIUM 2.2 MG/DL (1.5-2.4); POTASSIUM 4.6 MMOL/L (3.5-5.1); SODIUM 138 MMOL/L (135-145); TOTAL CARBON DIOXIDE 30.5 MMOL/L (24-32); TOTAL PROTEIN 7.3 G/DL (6.4-8.2); eGFR 12 ML/MIN
[2018-01-20] MEDS: furosemide 40mg tablet PO SCH (07:07)
[2018-01-20] MEDS: heparin, porcine 5000 units/ml vial SQ SCH (07:07)
[2018-01-20] MEDS: docusate sod 100mg capsule PO SCH (08:00)
[2018-01-20] MEDS: calcium acetate 667mg (PhosLO) capsule PO SCH (08:29)
[2018-01-20] MEDS ORDERED: HALO1TAB PO (10:43)
== END 2018-01-20 11:49 | disposition home or self-care (01) | DRG 189 ==
LOC: EEVIPCON 09:38 → CICU 2S 09:38
PROVIDERS: ADMIT Internal Medicine Critical Care Medicine; ATTEND Internal Medicine Critical Care Medicine
PROC: 5A09357 Assistance with Respiratory Ventilation, Less than 24 Consecutive Hours, Continuous Positive Airway Pressure (ICD-10-PCS; principal; 2018-01-18)
PROC: 5A1D70Z Performance of Urinary Filtration, Intermittent, Less than 6 Hours Per Day (ICD-10-PCS; 2018-01-19)
PROC: 5A09357 Assistance with Respiratory Ventilation, Less than 24 Consecutive Hours, Continuous Positive Airway Pressure (ICD-10-PCS; 2018-01-19)
DX: J96.20 Acute and chronic respiratory failure, unspecified whether with hypoxia or hypercapnia (principal); N18.6 End stage renal disease; Z68.42 Body mass index [BMI] 45.0-49.9, adult; I12.0 Hypertensive chronic kidney disease with stage 5 chronic kidney disease or end stage renal disease; R45.851 Suicidal ideations; F25.0 Schizoaffective disorder, bipolar type; E11.22 Type 2 diabetes mellitus with diabetic chronic kidney disease; J44.9 Chronic obstructive pulmonary disease, unspecified; T50.7X5A Adverse effect of analeptics and opioid receptor antagonists, initial encounter; F43.12 Post-traumatic stress disorder, chronic; E66.01 Morbid (severe) obesity due to excess calories; G89.29 Other chronic pain; Z99.2 Dependence on renal dialysis; Z88.5 Allergy status to narcotic agent; Z79.899 Other long term (current) drug therapy; Z79.4 Long term (current) use of insulin; Y92.89 Other specified places as the place of occurrence of the external cause
CPT/HCPCS: 36415; 36600; 80053; 82803; 82948; 83735; 84100; 84443; 85018; 85025; 94660; 94760; G0257; G0378; J0885; J1644; J1815; J2405

== ENCOUNTER 2018-01-20 10:56 | Inpatient (IN) | payer MEDICARE, MEDICAID ==
[~2018-01-20] VITALS: Ht 195.6 cm; Wt 172.8 kg
[~2018-01-20 10:56] MED LIST changes: +BACL10TA PO; +BUPR1TAB52 SL; +HALO1TAB PO; -LABE200T5 PO; +LURA60TA2 PO; +PHO667C PO; -QUET100T33 PO; +QUET200T PO
[2018-01-20] MEDS ORDERED: dextrose ORAL solution 15 GM/59 ML bottle PO PRN ×2 (13:10)
[2018-01-20] MEDS ORDERED: MESSAGE TO PHARMACY PO ONE (13:10)
[2018-01-20] MEDS ORDERED: glucagon, human recombinant 1mg kit SUBCUT PRN (13:10)
[2018-01-20] MEDS ORDERED: dextrose 50%-water 50ml dispensing syringe IV PRN ×2 (13:10)
[2018-01-20] MEDS ORDERED: tuberculin, purif. prot. deriv. 5 units/0.1ml ID ONE (13:45)
[2018-01-20 14:13] VITALS: BP 141/64
[2018-01-20] MEDS: calcium acetate 667mg (PhosLO) capsule PO SCH (18:02)
[2018-01-20 19:00] VITALS: BP 138/63
[2018-01-20] MEDS: NPH, human insulin isophane inj. SQ SCH (20:21)
[2018-01-20] MEDS: gabapentin 300mg capsule PO SCH (20:24)
[2018-01-20] MEDS: lurasidone 20mg tablet PO SCH (20:25)
[2018-01-20] MEDS: furosemide 40mg tablet PO SCH (20:25)
[2018-01-20] MEDS: traZODone 150mg tablet PO PRN (20:25)
[2018-01-20] MEDS ORDERED: lurasidone 60mg tablet PO SCH (21:00)
[2018-01-20] MEDS ORDERED: haloperidol 1mg tablet PO SCH (21:00)
[2018-01-20] MEDS ORDERED: insulin glargine (Lantus) pen - multi-dose SQ SCH (21:00)
[2018-01-21] MEDS: levoTHYROXINE 100mcg tablet PO SCH (07:28)
[2018-01-21 08:00] VITALS: BP 144/72
[2018-01-21] MEDS: atorvastatin 10mg tablet PO SCH (08:08)
[2018-01-21] MEDS: calcium acetate 667mg (PhosLO) capsule PO SCH ×3 (08:09→17:53)
[2018-01-21] MEDS: furosemide 40mg tablet PO SCH ×2 (08:09→19:44)
[2018-01-21] MEDS ORDERED: mag hydrox/Alum hydrox/simeth 30ml oral suspension PO PRN (09:25)
[2018-01-21] MEDS ORDERED: magnesium hydroxide 30ml (MOM) UD suspension PO PRN (09:25)
[2018-01-21] MEDS ORDERED: acetaminophen 325mg tablet PO PRN (09:25)
[2018-01-21] MEDS ORDERED: normal saline 1000ml 250 ML IV PRN (09:38)
[2018-01-21] MEDS ORDERED: heparin 1,000 units/ml 10ml inj IV ONE (09:40)
[2018-01-21] MEDS ORDERED: LIDOcaine 1% (10mg/ml) 2ml vial SQ ONE (09:40)
[2018-01-21] MEDS: LORazepam 1 MG tablet PO PRN (13:36)
[2018-01-21 19:00] VITALS: BP 119/62
[2018-01-21] MEDS: lurasidone 20mg tablet PO SCH (19:44)
[2018-01-21] MEDS: gabapentin 300mg capsule PO SCH (19:44)
[2018-01-21] MEDS: NPH, human insulin isophane inj. SQ SCH (20:15)
[2018-01-21] MEDS: traZODone 150mg tablet PO PRN (23:44)
[2018-01-22] MEDS: levoTHYROXINE 100mcg tablet PO SCH (07:27)
[2018-01-22] MEDS: calcium acetate 667mg (PhosLO) capsule PO SCH ×3 (07:28→18:06)
[2018-01-22] MEDS: atorvastatin 10mg tablet PO SCH (07:29)
[2018-01-22] MEDS: furosemide 40mg tablet PO SCH ×2 (07:29→20:39)
[2018-01-22 08:08] VITALS: BP 127/62
[2018-01-22] MEDS ORDERED: ondansetron 4mg rapidly disintigrating tab PO ONE (13:15)
[2018-01-22 19:00] VITALS: BP 157/57
[2018-01-22] MEDS: lurasidone 20mg tablet PO SCH (20:39)
[2018-01-22] MEDS: gabapentin 300mg capsule PO SCH (20:40)
[2018-01-22] MEDS: NPH, human insulin isophane inj. SQ SCH (20:50)
[2018-01-22] MEDS: traZODone 150mg tablet PO PRN (23:39)
[2018-01-22] MEDS: LORazepam 1 MG tablet PO PRN (23:39)
[2018-01-23] MEDS: levoTHYROXINE 100mcg tablet PO SCH (06:36)
[2018-01-23 08:00] VITALS: BP 137/59
[2018-01-23] MEDS: calcium acetate 667mg (PhosLO) capsule PO SCH ×3 (08:08→17:55)
[2018-01-23] MEDS: furosemide 40mg tablet PO SCH ×2 (08:08→20:29)
[2018-01-23] MEDS: atorvastatin 10mg tablet PO SCH (08:08)
[2018-01-23] MEDS ORDERED: LORazepam 1 MG tablet PO ONE (10:00)
[2018-01-23] MEDS: ondansetron 4mg rapidly disintigrating tab PO PRN (11:40)
[2018-01-23 13:00] VITALS: BP 159/93
[2018-01-23] MEDS ORDERED: traZODone 50mg tablet PO PRN (19:25)
[2018-01-23] MEDS: albuterol 2.5 MG/3 ML nebule NEB PRN (19:27)
[2018-01-23 19:39] VITALS: BP 136/52
[2018-01-23] MEDS: lurasidone 20mg tablet PO SCH (20:28)
[2018-01-23] MEDS: gabapentin 300mg capsule PO SCH (20:29)
[2018-01-23] MEDS: traZODone 150mg tablet PO SCH (20:30)
[2018-01-23] MEDS: NPH, human insulin isophane inj. SQ SCH (20:37)
[2018-01-24] MEDS: acetaminophen 325mg tablet PO PRN (05:33)
[2018-01-24] MEDS: levoTHYROXINE 100mcg tablet PO SCH (07:00)
[2018-01-24] MEDS: atorvastatin 10mg tablet PO SCH (07:59)
[2018-01-24 08:00] VITALS: BP 117/57
[2018-01-24] MEDS: furosemide 40mg tablet PO SCH ×2 (08:00→20:24)
[2018-01-24] MEDS: calcium acetate 667mg (PhosLO) capsule PO SCH ×3 (08:00→17:50)
[2018-01-24] MEDS ORDERED: heparin 1,000 units/ml 10ml inj IV ONE (08:30)
[2018-01-24] MEDS ORDERED: albumin (human) 25% 100ml IV 100 ML IV PRN (08:30)
[2018-01-24 09:27] LABS: BASOPHILS % (AUTO) 0.3 % (0-1); EOSINOPHILS # (AUTO) 0.3 X10'3 (0-0.9); EOSINOPHILS % (AUTO) 3.2 % (0-6); HEMATOCRIT 30.6 % (42.0-52.0); LYMPHOCYTES # (AUTO) 1.9 X10'3 (1.1-4.8); LYMPHOCYTES % (AUTO) 20.7 % (21-51); MEAN CORPUSCULAR HEMOGLOBIN 30.8 PG (27.0-31.0); MEAN CORPUSCULAR HGB CONC 32.8 % (33.0-36.5); MEAN CORPUSCULAR VOLUME 93.9 FL (78-98); MEAN PLATELET VOLUME 9.1 FL (7.4-10.4); MONOCYTES # (AUTO) 0.6 X10'3 (0-0.9); MONOCYTES % (AUTO) 6.4 % (2-12); NEUTROPHILS # (AUTO) 6.4 X10'3 (1.8-7.7); NEUTROPHILS % (AUTO) 69.4 % (42-75); PLATELET COUNT 145 X10'3 (140-440); RED BLOOD COUNT 3.26 X10'6 (4.70-6.10); RED CELL DISTRIBUTION WIDTH 14.5 % (11.5-14.5); WHITE BLOOD COUNT 9.2 X10'3 (4.5-11.0)
[2018-01-24 09:37] LABS: ALBUMIN 3.1 G/DL (3.4-5.0); ANION GAP 8 (8-16); BLOOD UREA NITROGEN 65 MG/DL (7-18); BUN/CREATININE RATIO 8.3 (5.4-32.0); CALCIUM 8.7 MG/DL (8.5-10.1); CHLORIDE 93 MMOL/L (99-107); CREATININE 7.84 MG/DL (0.60-1.10); GLUCOSE 158 MG/DL (70-104); PHOSPHORUS 6.5 MG/DL (2.3-4.5); POTASSIUM 5.6 MMOL/L (3.5-5.1); SODIUM 131 MMOL/L (135-145); TOTAL CARBON DIOXIDE 30.4 MMOL/L (24-32); eGFR 7 ML/MIN
[2018-01-24] MEDS ORDERED: LORazepam 1 MG tablet PO ONE (10:00)
[2018-01-24] MEDS ORDERED: epoetin 20,000 units/ml inj IV ONE (10:08)
[2018-01-24 19:53] VITALS: BP 115/62
[2018-01-24] MEDS: traZODone 150mg tablet PO SCH (20:24)
[2018-01-24] MEDS: lurasidone 20mg tablet PO SCH (20:24)
[2018-01-24] MEDS: NPH, human insulin isophane inj. SQ SCH (20:32)
[2018-01-25] MEDS: acetaminophen 325mg tablet PO PRN (03:53)
[2018-01-25 05:18] LABS: HBSAG SCREEN Negative (Negative)
[2018-01-25] MEDS: levoTHYROXINE 100mcg tablet PO SCH (07:29)
[2018-01-25] MEDS: furosemide 40mg tablet PO SCH ×2 (07:29→21:21)
[2018-01-25] MEDS: atorvastatin 10mg tablet PO SCH (07:30)
[2018-01-25] MEDS: duloxetine 20mg capsule.DR PO SCH (07:30)
[2018-01-25] MEDS: calcium acetate 667mg (PhosLO) capsule PO SCH ×3 (07:53→18:58)
[2018-01-25 08:00] VITALS: BP 120/58
[2018-01-25] MEDS: ondansetron 4mg rapidly disintigrating tab PO PRN (11:55)
[2018-01-25] MEDS: insulin Lispro (HumaLOG) vial - multi-dose SQ SCH (18:57)
[2018-01-25 20:00] VITALS: BP 164/64
[2018-01-25] MEDS: NPH, human insulin isophane inj. SQ SCH (21:17)
[2018-01-25] MEDS: traZODone 50mg tablet PO SCH (21:21)
[2018-01-25] MEDS: lurasidone 20mg tablet PO SCH (21:21)
[2018-01-26] MEDS: acetaminophen 325mg tablet PO PRN (01:13)
[2018-01-26] MEDS ORDERED: heparin 1,000unit/ml 10ml vial 10 ML IV ONE (06:54)
[2018-01-26] MEDS ORDERED: heparin 1,000 units/ml 10ml inj IV ONE (06:55)
[2018-01-26] MEDS ORDERED: epoetin 20,000 units/ml inj IV ONE (06:55)
[2018-01-26 07:33] LABS: BASOPHILS % (AUTO) 0.4 % (0-1); EOSINOPHILS # (AUTO) 0.2 X10'3 (0-0.9); EOSINOPHILS % (AUTO) 2.7 % (0-6); HEMATOCRIT 33.9 % (42.0-52.0); HEMOGLOBIN 11.2 g/dl (14.0-17.9); LYMPHOCYTES # (AUTO) 2.1 X10'3 (1.1-4.8); LYMPHOCYTES % (AUTO) 23.5 % (21-51); MEAN CORPUSCULAR HGB CONC 33.1 % (33.0-36.5); MEAN CORPUSCULAR VOLUME 93.7 FL (78-98); MEAN PLATELET VOLUME 9.5 FL (7.4-10.4); MONOCYTES # (AUTO) 0.6 X10'3 (0-0.9); MONOCYTES % (AUTO) 6.3 % (2-12); NEUTROPHILS % (AUTO) 67.1 % (42-75); PLATELET COUNT 166 X10'3 (140-440); RED BLOOD COUNT 3.62 X10'6 (4.70-6.10); WHITE BLOOD COUNT 8.9 X10'3 (4.5-11.0)
[2018-01-26 07:45] LABS: ALANINE AMINOTRANSFERASE 25 U/L (12-78); ALBUMIN 3.6 G/DL (3.4-5.0); ALKALINE PHOSPHATASE 62 IU/L (46-116); ANION GAP 6 (8-16); ASPARTATE AMINO TRANSFERASE 19 U/L (10-37); BILIRUBIN,TOTAL 0.5 MG/DL (0.1-1.0); BLOOD UREA NITROGEN 51 MG/DL (7-18); BUN/CREATININE RATIO 7.9 (5.4-32.0); CALCIUM 9.4 MG/DL (8.5-10.1); CHLORIDE 98 MMOL/L (99-107); CREATININE 6.47 MG/DL (0.60-1.10); GLUCOSE 104 MG/DL (70-104); MAGNESIUM 2.3 MG/DL (1.5-2.4); PHOSPHORUS 6.4 MG/DL (2.3-4.5); SODIUM 135 MMOL/L (135-145); TOTAL CARBON DIOXIDE 31.1 MMOL/L (24-32); TOTAL PROTEIN 7.2 G/DL (6.4-8.2); eGFR 9 ML/MIN
[2018-01-26 07:49] LABS: POTASSIUM 5.6 MMOL/L (3.5-5.1)
[2018-01-26] MEDS: duloxetine 20mg capsule.DR PO SCH (07:59)
[2018-01-26] MEDS: levoTHYROXINE 100mcg tablet PO SCH (08:00)
[2018-01-26] MEDS: calcium acetate 667mg (PhosLO) capsule PO SCH ×3 (08:00→17:34)
[2018-01-26] MEDS: atorvastatin 10mg tablet PO SCH (08:00)
[2018-01-26] MEDS: furosemide 40mg tablet PO SCH ×2 (08:00→20:00)
[2018-01-26 08:24] VITALS: BP 136/64
[2018-01-26] MEDS: albuterol 2.5 MG/3 ML nebule NEB PRN (09:13)
[2018-01-26] MEDS: LORazepam 1 MG tablet PO SCH (10:08)
[2018-01-26] MEDS: LORazepam 1 MG tablet PO PRN (10:20)
[2018-01-26] MEDS: albumin (human) 25% 100ml IV 100 ML IV PRN ×2 (13:03→13:06)
[2018-01-26] MEDS: insulin Lispro (HumaLOG) vial - multi-dose SQ SCH (17:36)
[2018-01-26 20:00] VITALS: BP 133/80
[2018-01-26] MEDS: NPH, human insulin isophane inj. SQ SCH (21:00)
[2018-01-26] MEDS: lurasidone 20mg tablet PO SCH (21:00)
[2018-01-26] MEDS: traZODone 50mg tablet PO SCH (21:00)
[2018-01-27] MEDS ORDERED: duloxetine 30mg CAPSULE.DR PO SCH (08:00)
[2018-01-27] MEDS: levoTHYROXINE 100mcg tablet PO SCH (08:04)
[2018-01-27] MEDS: atorvastatin 10mg tablet PO SCH (08:04)
[2018-01-27] MEDS: furosemide 40mg tablet PO SCH (08:04)
[2018-01-27] MEDS: calcium acetate 667mg (PhosLO) capsule PO SCH ×2 (08:04→13:20)
[2018-01-27 08:56] VITALS: BP 145/70
[2018-01-27] MEDS ORDERED: albumin (human) 25% 100ml IV 100 ML IV ONE (11:20)
[2018-01-27] MEDS: ondansetron 4mg rapidly disintigrating tab PO PRN (13:19)
[2018-01-27 13:23] LABS: ALBUMIN 3.4 G/DL (3.4-5.0); ANION GAP 7 (8-16); BLOOD UREA NITROGEN 32 MG/DL (7-18); BUN/CREATININE RATIO 7.1 (5.4-32.0); CALCIUM 9.1 MG/DL (8.5-10.1); CHLORIDE 98 MMOL/L (99-107); CREATININE 4.53 MG/DL (0.60-1.10); GLUCOSE 112 MG/DL (70-104); SODIUM 134 MMOL/L (135-145); TOTAL CARBON DIOXIDE 29.3 MMOL/L (24-32); eGFR 13 ML/MIN
[2018-01-27] MEDS: LORazepam 1 MG tablet PO SCH (13:38)
[2018-01-27] MEDS ORDERED: PHO667C PO (14:57)
[2018-01-27] MEDS ORDERED: ATI1T PO (14:57)
[2018-01-27] MEDS ORDERED: DULO30CA51 PO (14:57)
[2018-01-27] MEDS ORDERED: LURA40TA3 PO (14:57)
[2018-01-27] MEDS ORDERED: ALB0.5UD IH (14:57)
[2018-01-27] MEDS ORDERED: lurasidone 20mg tablet PO ONE (15:58)
== END 2018-01-27 16:08 | disposition home or self-care (01) | DRG 885 ==
LOC: EEVIPCON → ADULT MH 11:57
PROVIDERS: ADMIT Psychiatry & Neurology Psychiatry; ATTEND Psychiatry & Neurology Psychiatry
PROC: 5A09357 Assistance with Respiratory Ventilation, Less than 24 Consecutive Hours, Continuous Positive Airway Pressure (ICD-10-PCS; principal; 2018-01-20)
PROC: 5A1D70Z Performance of Urinary Filtration, Intermittent, Less than 6 Hours Per Day (ICD-10-PCS; 2018-01-21)
PROC: 5A09357 Assistance with Respiratory Ventilation, Less than 24 Consecutive Hours, Continuous Positive Airway Pressure (ICD-10-PCS; 2018-01-21)
PROC: 5A1D70Z Performance of Urinary Filtration, Intermittent, Less than 6 Hours Per Day (ICD-10-PCS; 2018-01-24)
PROC: 5A09357 Assistance with Respiratory Ventilation, Less than 24 Consecutive Hours, Continuous Positive Airway Pressure (ICD-10-PCS; 2018-01-26)
PROC: 5A1D70Z Performance of Urinary Filtration, Intermittent, Less than 6 Hours Per Day (ICD-10-PCS; 2018-01-26)
DX: F33.3 Major depressive disorder, recurrent, severe with psychotic symptoms (principal); N18.6 End stage renal disease; I12.0 Hypertensive chronic kidney disease with stage 5 chronic kidney disease or end stage renal disease; Z68.42 Body mass index [BMI] 45.0-49.9, adult; R45.851 Suicidal ideations; F43.12 Post-traumatic stress disorder, chronic; E03.9 Hypothyroidism, unspecified; E66.01 Morbid (severe) obesity due to excess calories; E78.5 Hyperlipidemia, unspecified; G47.00 Insomnia, unspecified; G47.33 Obstructive sleep apnea (adult) (pediatric); M54.5 Low back pain; E11.22 Type 2 diabetes mellitus with diabetic chronic kidney disease; R11.2 Nausea with vomiting, unspecified; G89.29 Other chronic pain; M48.00 Spinal stenosis, site unspecified; Z59.9 Problem related to housing and economic circumstances, unspecified; Z79.4 Long term (current) use of insulin; Z91.09 Other allergy status, other than to drugs and biological substances; Z99.2 Dependence on renal dialysis; Z59.0 Homelessness
CPT/HCPCS: 36415; 80048; 80053; 80069; 82948; 83036; 83735; 84100; 85025; 85027; 87070; 87340; 94640; 94660; 94760; G0257; J0885; J1644; J1815; J3490; P9047

== ENCOUNTER 2018-09-15 07:48 | Day surgery (SDC) | payer MEDICARE, MEDICAID ==
[2018-09-15] VITALS (7 sets, daily range): BP systolic 136–171; BP diastolic 68–112
[~2018-09-15] VITALS: Ht 195.6 cm; Wt 168.0 kg
[~2018-09-15 07:48] MED LIST changes: -BACL10TA PO; -BUPR1TAB52 SL; +DULO30CA51 PO; -GABA-532 PO; -HALO1TAB PO; +LIDOcaine 1%/PF 5ML 10 MG/ML VIAL ONE; -LORA1TAB PO; -QUET200T PO; +iohexol 300mg/ml 100ml inj. ONE
[2018-09-15] MEDS ORDERED: LORA1TAB PO (08:59)
[2018-09-15] MEDS ORDERED: UMEC1DIS INH (08:59)
[2018-09-15] MEDS ORDERED: CLON-527 PO (08:59)
[2018-09-15] MEDS ORDERED: normal saline 1000ml 1,000 ML IV SCH (09:00)
[2018-09-15] MEDS ORDERED: fentaNYL/PF 50MCG/1 ML 2ML syringe IV PRN (09:55)
[2018-09-15] MEDS ORDERED: LIDOcaine 1% 30ml preserv. free vial SQ ONE (09:55)
[2018-09-15] MEDS ORDERED: midazolam 2 mg/2 ml injection IV PRN (09:55)
[2018-09-15] MEDS ORDERED: heparin 1,000 UNITS/NS 500ml 500 ML ICATH ONE (09:55)
[2018-09-15 10:02] LABS: BASOPHILS % (AUTO) 0.5 % (0-1); EOSINOPHILS # (AUTO) 0.2 X10'3 (0-0.9); EOSINOPHILS % (AUTO) 2.6 % (0-6); HEMATOCRIT 35.4 % (42.0-52.0); HEMOGLOBIN 11.7 g/dl (14.0-17.9); LYMPHOCYTES # (AUTO) 1.8 X10'3 (1.1-4.8); LYMPHOCYTES % (AUTO) 22.1 % (21-51); MEAN CORPUSCULAR HEMOGLOBIN 31.6 PG (27.0-31.0); MEAN CORPUSCULAR VOLUME 95.6 FL (78-98); MEAN PLATELET VOLUME 9.4 FL (7.4-10.4); MONOCYTES # (AUTO) 0.6 X10'3 (0-0.9); NEUTROPHILS # (AUTO) 5.5 X10'3 (1.8-7.7); NEUTROPHILS % (AUTO) 67.8 % (42-75); PLATELET COUNT 137 X10'3 (140-440); RED CELL DISTRIBUTION WIDTH 15.4 % (11.5-14.5); WHITE BLOOD COUNT 8.1 X10'3 (4.5-11.0)
[2018-09-15 10:17] LABS: ALBUMIN 3.3 G/DL (3.4-5.0); ANION GAP 4 (8-16); BLOOD UREA NITROGEN 27 MG/DL (7-18); BUN/CREATININE RATIO 5.9 (5.4-32.0); CALCIUM 8.9 MG/DL (8.5-10.1); CHLORIDE 103 MMOL/L (99-107); CREATININE 4.56 MG/DL (0.60-1.10); GLUCOSE 133 MG/DL (70-104); POTASSIUM 4.8 MMOL/L (3.5-5.1); SODIUM 140 MMOL/L (135-145); eGFR 13 ML/MIN
[2018-09-15] MEDS ORDERED: midazolam 2 mg/2 ml injection ONE (10:19)
[2018-09-15] MEDS ORDERED: heparin 1,000 UNITS/NS 500ml 500 ML ONE (10:19)
[2018-09-15] MEDS ORDERED: fentaNYL/PF 50MCG/1 ML 2ML syringe ONE ×2 (10:19→10:41)
== END 2018-09-15 13:05 | disposition home or self-care (01) ==
LOC: SSTAY O 07:48
PROVIDERS: ATTEND Radiology Diagnostic Radiology
DX: T82.858A Stenosis of other vascular prosthetic devices, implants and grafts, initial encounter (principal); E11.22 Type 2 diabetes mellitus with diabetic chronic kidney disease; G89.29 Other chronic pain; M54.2 Cervicalgia; N18.6 End stage renal disease; G47.33 Obstructive sleep apnea (adult) (pediatric); E78.5 Hyperlipidemia, unspecified; E66.01 Morbid (severe) obesity due to excess calories; Z98.890 Other specified postprocedural states; E03.9 Hypothyroidism, unspecified; Y83.8 Other surgical procedures as the cause of abnormal reaction of the patient, or of later complication, without mention of misadventure at the time of the procedure; Z79.4 Long term (current) use of insulin; Z88.6 Allergy status to analgesic agent; Z68.41 Body mass index [BMI] 40.0-44.9, adult
CPT/HCPCS: 36415; 36902; 80048; 82948; 85025; 99152; 99153; C1725; C1769; C1894; J1644; J2001; J2250; J3010; J7030; Q9967

== ENCOUNTER 2019-04-17 10:05 | Day surgery (SDC) | payer MEDICARE, MEDICAID ==
[~2019-04-17] VITALS: Ht 195.6 cm; Wt 166.0 kg
[~2019-04-17 10:05] MED LIST changes: +CLON-527 PO; -DULO30CA51 PO; -LIDOcaine 1%/PF 5ML 10 MG/ML VIAL ONE; +LORA1TAB PO; -LURA60TA2 PO; +UMEC1DIS INH; -iohexol 300mg/ml 100ml inj. ONE
[2019-04-17 10:15] VITALS: BP 186/89
[2019-04-17] MEDS ORDERED: ALB0.5UD IH (10:31)
[2019-04-17] MEDS ORDERED: PRAV40TA PO (10:33)
[2019-04-17] MEDS ORDERED: FURO-150 PO (10:33)
[2019-04-17] MEDS ORDERED: PRAV20TA PO (10:33)
[2019-04-17] MEDS ORDERED: MIDAZolam 5mg/5ml vial ONE (11:08)
[2019-04-17] MEDS ORDERED: fentaNYL/PF 50MCG/1 ML 2ML syringe ONE (11:08)
[2019-04-17 11:51] VITALS: BP 151/77
[2019-04-17 12:01] VITALS: BP 164/70
[2019-04-17 12:11] VITALS: BP 155/67
[2019-04-17 12:21] VITALS: BP 167/83
== END 2019-04-17 12:55 | disposition home or self-care (01) ==
LOC: GI LAB 10:05
PROVIDERS: ATTEND Internal Medicine Gastroenterology
DX: Z86.010 Personal history of colon polyps (principal); D12.3 Benign neoplasm of transverse colon; D12.5 Benign neoplasm of sigmoid colon; K57.30 Diverticulosis of large intestine without perforation or abscess without bleeding; E66.01 Morbid (severe) obesity due to excess calories; Z68.41 Body mass index [BMI] 40.0-44.9, adult; K64.8 Other hemorrhoids
CPT/HCPCS: 45385; C1773; J2250; J3010; J7040; 88305; 99152; 99153; A4620

== ENCOUNTER 2019-04-26 15:06 | Emergency (ER) | payer MEDICARE, MEDICAID ==
[~2019-04-26] VITALS: Ht 195.6 cm; Wt 165.0 kg
[~2019-04-26 15:06] MED LIST changes: -CLON-527 PO; +FURO-150 PO; -FURO80TA3 PO; -LORA1TAB PO; -PHO667C PO; +PRAV20TA PO; -PRAV20TA4 PO; +PRAV40TA PO; -TRAZ150T78 PO
[2019-04-26 15:23] VITALS: BP 154/61
--- NOTE | 2019-04-26 16:23 | NUR ---
when triage checked pt. bleeding had stopped. when pt. called for fast track pt. not in lobby
== END 2019-04-26 16:26 | disposition left against medical advice (07) ==
LOC: ER 15:07
DX: K62.5 Hemorrhage of anus and rectum (principal); Z53.21 Procedure and treatment not carried out due to patient leaving prior to being seen by health care provider

== ENCOUNTER 2019-05-16 07:25 | Emergency (ER) | payer MEDICARE, MEDICAID ==
[~2019-05-16] VITALS: Ht 195.6 cm; Wt 166.0 kg
[2019-05-16] MEDS ORDERED: ondansetron 4mg rapidly disintigrating tab PO ONE (07:50)
[2019-05-16 08:20] LABS: BASOPHILS # (AUTO) 0.1 X10'3 (0-0.2); BASOPHILS % (AUTO) 0.9 % (0-1); EOSINOPHILS # (AUTO) 0.2 X10'3 (0-0.9); EOSINOPHILS % (AUTO) 1.6 % (0-6); HEMATOCRIT 39.5 % (42.0-52.0); HEMOGLOBIN 13.2 g/dl (14.0-17.9); LYMPHOCYTES # (AUTO) 1.3 X10'3 (1.1-4.8); LYMPHOCYTES % (AUTO) 10.9 % (21-51); MEAN CORPUSCULAR HEMOGLOBIN 30.9 PG (27.0-31.0); MEAN CORPUSCULAR HGB CONC 33.4 g/dL (33.0-36.5); MEAN CORPUSCULAR VOLUME 92.5 FL (78-98); MEAN PLATELET VOLUME 8.9 FL (7.4-10.4); MONOCYTES # (AUTO) 0.6 X10'3 (0-0.9); MONOCYTES % (AUTO) 5.3 % (2-12); NEUTROPHILS # (AUTO) 9.9 X10'3 (1.8-7.7); NEUTROPHILS % (AUTO) 81.3 % (42-75); PLATELET COUNT 161 X10'3 (140-440); RED BLOOD COUNT 4.27 X10'6 (4.70-6.10); RED CELL DISTRIBUTION WIDTH 13.8 % (11.5-14.5); WHITE BLOOD COUNT 12.2 X10'3 (4.5-11.0)
[2019-05-16 08:30] LABS: ALANINE AMINOTRANSFERASE 23 U/L (12-78); ALBUMIN 3.6 G/DL (3.4-5.0); ALBUMIN/GLOBULIN RATIO 0.9 (1.1-1.5); ALKALINE PHOSPHATASE 61 IU/L (46-116); ANION GAP 3 (8-16); ASPARTATE AMINO TRANSFERASE 16 U/L (10-37); BLOOD UREA NITROGEN 32 MG/DL (7-18); BUN/CREATININE RATIO 7.1 (5.4-32.0); CALCIUM 9.5 MG/DL (8.5-10.1); CHLORIDE 100 MMOL/L (99-107); CREATININE 4.49 MG/DL (0.60-1.10); GLUCOSE 229 MG/DL (70-104); LIPASE 185 U/L (73-393); POTASSIUM 4.4 MMOL/L (3.5-5.1); SODIUM 143 MMOL/L (135-145); TOTAL CARBON DIOXIDE 39.6 MMOL/L (24-32); TOTAL PROTEIN 7.5 G/DL (6.4-8.2); eGFR 13 ML/MIN
[2019-05-16] MEDS ORDERED: dicyclomine 10 MG capsule PO ONE (08:35)
[2019-05-16 13:52] VITALS: BP 150/69
== END 2019-05-16 13:15 | disposition home or self-care (01) ==
LOC: ER 07:26
DX: E11.22 Type 2 diabetes mellitus with diabetic chronic kidney disease (principal); N18.6 End stage renal disease; R10.33 Periumbilical pain; E11.42 Type 2 diabetes mellitus with diabetic polyneuropathy; J45.909 Unspecified asthma, uncomplicated; G89.29 Other chronic pain; F31.9 Bipolar disorder, unspecified; F20.9 Schizophrenia, unspecified; Z88.5 Allergy status to narcotic agent; Z79.4 Long term (current) use of insulin; Z79.899 Other long term (current) drug therapy; Z99.2 Dependence on renal dialysis
CPT/HCPCS: 36415; 74018; 80053; 83690; 85025; 99284

== ENCOUNTER 2019-11-15 13:05 | Emergency (ER) | payer MEDICARE, OTHER ==
[~2019-11-15] VITALS: Ht 195.6 cm; Wt 151.0 kg
[2019-11-15 14:32] LABS: BASOPHILS # (AUTO) 0.1 X10'3 (0-0.2); BASOPHILS % (AUTO) 0.5 % (0-1); EOSINOPHILS # (AUTO) 0.2 X10'3 (0-0.9); EOSINOPHILS % (AUTO) 2.2 % (0-6); HEMATOCRIT 36.3 % (42.0-52.0); HEMOGLOBIN 12.1 g/dl (14.0-17.9); LYMPHOCYTES # (AUTO) 0.9 X10'3 (1.1-4.8); LYMPHOCYTES % (AUTO) 8.6 % (21-51); MEAN CORPUSCULAR HGB CONC 33.4 g/dL (33.0-36.5); MEAN CORPUSCULAR VOLUME 92.8 FL (78-98); MEAN PLATELET VOLUME 9.1 FL (7.4-10.4); MONOCYTES # (AUTO) 0.6 X10'3 (0-0.9); NEUTROPHILS # (AUTO) 8.3 X10'3 (1.8-7.7); NEUTROPHILS % (AUTO) 82.7 % (42-75); PLATELET COUNT 120 X10'3 (140-440); RED BLOOD COUNT 3.91 X10'6 (4.70-6.10)
[2019-11-15 14:46] LABS: ALANINE AMINOTRANSFERASE 22 U/L (12-78); ALBUMIN 3.3 G/DL (3.4-5.0); ALBUMIN/GLOBULIN RATIO 0.9 (1.1-1.5); ALKALINE PHOSPHATASE 54 IU/L (46-116); ANION GAP 5 (8-16); ASPARTATE AMINO TRANSFERASE 17 U/L (10-37); BLOOD UREA NITROGEN 17 MG/DL (7-18); BUN/CREATININE RATIO 4.9 (5.4-32.0); CALCIUM 8.5 MG/DL (8.5-10.1); CHLORIDE 101 MMOL/L (99-107); CREATININE 3.48 MG/DL (0.60-1.10); GLUCOSE 120 MG/DL (70-104); POTASSIUM 4.2 MMOL/L (3.5-5.1); SODIUM 137 MMOL/L (135-145); TOTAL CARBON DIOXIDE 31.2 MMOL/L (24-32); eGFR 18 ML/MIN
[2019-11-15 14:47] LABS: ETHANOL < 0.010 GM/DL (0.0-0.010)
--- NOTE | 2019-11-15 14:57 | NUR ---
Pt requested a breathing treatment. Dr. Reyes notified ahd he reports he will order the neb treatment. Pt also reports he rarely voids due to his renal failure.
--- NOTE | 2019-11-15 15:30 | NUR ---
Pt is resting on the gurney with a position of comfort. Respirations are even unlabored. Pt's medication reconcilliation is being completed by the pharmacist.
[2019-11-15] MEDS ORDERED: NPH,100I SQ (15:34)
[2019-11-15] MEDS ORDERED: ALBU17AE26 IH (15:34)
[2019-11-15] MEDS ORDERED: PHO667C PO (15:35)
[2019-11-15] MEDS ORDERED: non-formulary drug (Albuterol Sulfate Nebs* (Proventil Nebs*) 2.5 MG) IH PRN (15:50)
[2019-11-15] MEDS ORDERED: insulin regular, human U-100 3ml vial - multi-dose SQ SCH (16:00)
[2019-11-15] MEDS ORDERED: albuterol 2.5 MG/3 ML nebule NEB PRN (16:05)
--- NOTE | 2019-11-15 16:23 | NUR ---
Respiratory therapist paged to administer a nebulizer treatment for the patient.
[2019-11-15] MEDS: ipratropium 0.5 MG/2.5ML nebule IH SCH ×2 (16:30→20:27)
--- NOTE | 2019-11-15 17:20 | NUR ---
Pt is resting on the gurney with no signs of distress, monitoring closely.
[2019-11-15 17:30] LABS: URINE AMPHETAMINE SCREEN NEGATIVE (Neg); URINE BARBITUATE SCREEN NEGATIVE (Neg); URINE BENZODIAZEPINES SCREEN NEGATIVE (Neg); URINE CANNABINOID SCREEN POSITIVE (Neg); URINE COCAINE SCREEN NEGATIVE (Neg); URINE METHADONE SCREEN NEGATIVE (Neg); URINE OPIATE SCREEN NEGATIVE (Neg); URINE PHENCYCLIDINE SCREEN NEGATIVE (Neg)
--- NOTE | 2019-11-15 18:15 | NUR ---
Pt moved to Room ED 14 to facilitate other patients in the Department. Pt remains under close observation. Report given to THONG Schultz.
[2019-11-15] MEDS: calcium acetate 667mg (PhosLO) capsule PO SCH (18:20)
[2019-11-15] MEDS ORDERED: diphenhydrAMINE 50 mg/ml inj IV ONE (18:55)
[2019-11-15] MEDS ORDERED: metoclopramide 5 mg/ml inj IV ONE (18:55)
[2019-11-15] MEDS ORDERED: LORazepam 2 mg/ml vial IV ONE (18:55)
--- NOTE | 2019-11-15 20:00 | NUR ---
pt was moved from room 14 in main ER to 23 in overflow, with all of his belongings, given his dinner tray
[2019-11-15] MEDS: NPH, human insulin isophane inj. SQ SCH (20:27)
[2019-11-15] MEDS: furosemide 20MG tablet PO SCH (20:52)
[2019-11-15] MEDS ORDERED: levoTHYROXINE 100mcg tablet PO SCH ×2 (21:00)
--- NOTE | 2019-11-15 21:00 | NUR ---
RT set up pt's own CPAP
--- NOTE | 2019-11-15 21:58 | NUR ---
pt is sleeping, refuses to put on his CPAP even though he requested that it be set up for him
--- NOTE | 2019-11-15 22:00 | NUR ---
Parish minerotoniel in [facility] - 11/15/19 at 2202 by [email or web address] pt was moved from room 14 in [facility] to 23 in [facility], with all of his belongings, given his dinner tray
--- NOTE | 2019-11-15 22:02 | NUR ---
pt just put on his cpap
--- NOTE | 2019-11-15 22:35 | NUR ---
pt is asleep, wearing CPAP, no needs at this time
--- NOTE | 2019-11-16 00:30 | NUR ---
Client is resting on his back, not wearing his CPAP. Snoring loudly. Otherwise no distress.
--- NOTE | 2019-11-16 01:00 | NUR ---
Client transferred to mobility scooter w/o difficulty. Went to restroom, c/o diarrhea. Will ask MD for Loperamide.
[2019-11-16] MEDS ORDERED: loperamide 2mg capsule PO ONE (01:10)
--- NOTE | 2019-11-16 01:50 | NUR ---
Client rec'd 2 mg Loperimide Tab PO. Client reports not being able to sit comfortably with head raised. Has a productive cough. Continues to refuse CPAP.
--- NOTE | 2019-11-16 02:04 | NUR ---
Client resting on back. Productive cough.
[2019-11-16] MEDS: ipratropium 0.5 MG/2.5ML nebule IH SCH ×4 (02:12→21:22)
--- NOTE | 2019-11-16 02:12 | NUR ---
RT at bedside to admin Neb treatment. Client is compliant with treatment.
--- NOTE | 2019-11-16 03:02 | NUR ---
Client resting on back. CPAP is in use. Cough has diminished.
--- NOTE | 2019-11-16 03:54 | NUR ---
Client resting, eye's closed. Wearing CPAP.
--- NOTE | 2019-11-16 05:43 | NUR ---
Client awake. C/O watery diarrhea. Denies stomach cramps or pain. States "my stomach is messed up". Reports he is only able to eat small portions and has lost 60 lbs in 4 months. Feel's his stomach isn't emptying. Client feels he has no reason to live as he has no friends or family. Stated, "The only thing I enjoyed was eating, and now I can't do that." Client feels hopeless.
--- NOTE | 2019-11-16 06:37 | NUR ---
pt resting in bed cpap in use at this time.will cont to monitor.
--- NOTE | 2019-11-16 06:48 | NUR ---
pt i sa wake and coughing at this time,will cont to monitor.
--- NOTE | 2019-11-16 07:23 | NUR ---
PT SLEEPING AT THIS TIME,WILL CONT TO MONITOR ,NO DISTRESS NOTED.
--- NOTE | 2019-11-16 08:09 | NUR ---
Pt sleeping with bipap in place.
--- NOTE | 2019-11-16 08:16 | NUR ---
Breakfast trays have arrived and are taken to pt's room.
--- NOTE | 2019-11-16 08:48 | NUR ---
called pharmacy regarding pt meds as its not in [facility] as per pharmacist she will fix it and send someone to deliver it to us a swe don't have enough staff to get meds.
--- NOTE | 2019-11-16 09:00 | NUR ---
pt using breathing tx at this time.
[2019-11-16] MEDS: furosemide 20MG tablet PO SCH ×2 (09:06→20:00)
[2019-11-16] MEDS: pravastatin 40mg tablet PO SCH (09:06)
[2019-11-16] MEDS: levoTHYROXINE 100mcg tablet PO SCH (09:06)
[2019-11-16] MEDS: calcium acetate 667mg (PhosLO) capsule PO SCH ×3 (09:07→18:00)
--- NOTE | 2019-11-16 09:41 | NUR ---
pt ekg done by aileen visual merchandising assistant,no distress noted,will cont to monitor.
--- NOTE | 2019-11-16 10:38 | NUR ---
Mental Health Principle Software Engineer from [facility] is at the bedside with the patient at this time. Pt is calm and cooperative with staff currently.
--- NOTE | 2019-11-16 10:56 | NUR ---
PAGED POST SPLITTER FOR OPTIONS ON PTS LIVING SITUATION
--- NOTE | 2019-11-16 11:40 | NUR ---
Pt's fingerstick blood glucose measured prior to lunch. Pt is awaiting disposition from [facility] and Awaiting consult with Jingle Writer.
--- NOTE | 2019-11-16 12:27 | NUR ---
Pt is resting with his C-pap machine connected, continuing to monitor the patient.
--- NOTE | 2019-11-16 13:30 | NUR ---
Pt transferred to his electric wheelchair and went to the restroom with minimal assist. Pt has lunch tray at bedside and is starting to eat a small portion. Will administer the PhosLo as ordered momentarily.
[2019-11-16] MEDS ORDERED: ondansetron 4mg rapidly disintigrating tab PO ONE (14:20)
--- NOTE | 2019-11-16 14:25 | NUR ---
breaking primary nurse at this time ,zofran 4 mg po once multimedia developer to the pt as pt was c/o nausea.no other concern.
--- NOTE | 2019-11-16 14:43 | NUR ---
Changed order for dietary to include mechanical soft diet per the patient's request. He reports it is easier to tolerate his food when it is soft.
--- NOTE | 2019-11-16 15:20 | NUR ---
Pt is resting with his c-pap machine on at this time, in line of sight of the nurse's station.
--- NOTE | 2019-11-16 16:22 | NUR ---
Respiratory Therapy is here now administering the neb treatment.
--- NOTE | 2019-11-16 16:32 | NUR ---
pt coughing out sputum ,rt just finished the breathing tx.
--- NOTE | 2019-11-16 17:09 | NUR ---
Pt is resting at this time, respirations even and unlabored.
--- NOTE | 2019-11-16 18:05 | NUR ---
No change in condition, resting comfortably with C-pap mask on at this time.
--- NOTE | 2019-11-16 18:50 | NUR ---
Dr. Montenegro and Charge nurse notified of the patient's need for Quality Internship/Stacker Straightener consult to order his hemodialysis for tomorrow 11/17/19.
--- NOTE | 2019-11-16 19:00 | NUR ---
Pt up eating dinner. PHoslo given. Pt requesting number to the bus station.
[2019-11-16] MEDS: NPH, human insulin isophane inj. SQ SCH (20:40)
--- NOTE | 2019-11-16 21:59 | NUR ---
BREAKING PRIMARY RN; WILL CONT TO MONITOR.
--- NOTE | 2019-11-16 23:08 | NUR ---
Pt resting quietly, respirations normal, no s/s of distress.
--- NOTE | 2019-11-17 | NUR ---
Pt repositioned in bed.
--- NOTE | 2019-11-17 01:58 | NUR ---
Pt resting quietly, respirations normal, no s/s of distress. Cpap currently off per pt.
[2019-11-17] MEDS: ipratropium 0.5 MG/2.5ML nebule IH SCH ×4 (02:29→20:48)
--- NOTE | 2019-11-17 04:28 | NUR ---
Pt resting quietly, respirations normal, no s/s of distress.
--- NOTE | 2019-11-17 07:00 | NUR ---
Asleep resp stable
--- NOTE | 2019-11-17 08:00 | NUR ---
resting bed resp stable
[2019-11-17] MEDS: pravastatin 40mg tablet PO SCH (08:31)
[2019-11-17] MEDS: levoTHYROXINE 100mcg tablet PO SCH (08:31)
[2019-11-17] MEDS: furosemide 20MG tablet PO SCH ×2 (08:31→19:09)
[2019-11-17] MEDS: calcium acetate 667mg (PhosLO) capsule PO SCH ×3 (08:31→18:48)
--- NOTE | 2019-11-17 09:00 | NUR ---
resting bed resp stable
[2019-11-17] MEDS ORDERED: normal saline 1000ml 250 ML IV PRN (09:49)
[2019-11-17] MEDS ORDERED: heparin 1,000 units/ml 10ml inj IV ONE (09:50)
[2019-11-17] MEDS ORDERED: LIDOcaine 1% (10mg/ml) 2ml vial SQ ONE (09:50)
--- NOTE | 2019-11-17 10:00 | NUR ---
resting bed resp stable
--- NOTE | 2019-11-17 11:00 | NUR ---
resting bed resp stable
--- NOTE | 2019-11-17 12:00 | NUR ---
resting bed resp stable
--- NOTE | 2019-11-17 13:00 | NUR ---
resting bed resp stable
--- NOTE | 2019-11-17 13:37 | NUR ---
DR PATEL AT TO SEE PT FOR NEPHRO SERVICES
--- NOTE | 2019-11-17 13:46 | NUR ---
SPOKE WITH DR PATEL RE PT STATES LIVING CONDITIONS ARE CAUSING HIM TO FEEL LIKE HE DOESNT WANT TO LIVE ANYMORE. PT STATES ALL HE DOSE IS GO TO DIALYSIS AND HOME. HE STATES THE PLACE HE LIVES HAS BED BUGS AND OTHER BUGS AND THE [place] WILL NOT DO ANYTHING TO HELP. PT STATES TO DR HILLMAN IF HE COULD JUST GET SOME HELP WITH HIS LIVING SITUATION HE WOULD FEEL BETER. SOCIAL SERVICE CONSULT ORDERED PER DR PATEL REQUEST
--- NOTE | 2019-11-17 14:00 | NUR ---
resting bed resp stable
--- NOTE | 2019-11-17 14:33 | NUR ---
I have called pharmacy twice for natalialo, it still has not been brought over
[2019-11-17] MEDS ORDERED: ondansetron 4mg rapidly disintigrating tab PO ONE (15:00)
--- NOTE | 2019-11-17 15:00 | NUR ---
resting bed resp stable
--- NOTE | 2019-11-17 16:00 | NUR ---
resting in bed resp stable
--- NOTE | 2019-11-17 17:00 | NUR ---
resting in bed resp stable
[2019-11-17] MEDS ORDERED: ibuprofen tablet 400 MG TABLET PO ONE (17:05)
--- NOTE | 2019-11-17 18:05 | NUR ---
resting in bed resp stable
[2019-11-17] MEDS: NPH, human insulin isophane inj. SQ SCH (21:00)
--- NOTE | 2019-11-17 23:48 | NUR ---
PT IN ROOM GETTING HEMODIALYSIS. NO S/S OF DISTRESS OR PAIN. HD NURSE AT BEDSIDE. WILL CONTINUE TO MONITOR.
[2019-11-18] MEDS: ipratropium 0.5 MG/2.5ML nebule IH SCH ×4 (02:54→21:24)
--- NOTE | 2019-11-18 07:02 | NUR ---
Asleep respirations stable
[2019-11-18] MEDS: levoTHYROXINE 100mcg tablet PO SCH (07:49)
--- NOTE | 2019-11-18 08:00 | NUR ---
Asleep respirations stable
[2019-11-18] MEDS ORDERED: ondansetron 4mg rapidly disintigrating tab PO ONE (08:15)
[2019-11-18] MEDS: furosemide 20MG tablet PO SCH ×2 (08:18→19:01)
[2019-11-18] MEDS: calcium acetate 667mg (PhosLO) capsule PO SCH ×3 (08:18→18:59)
[2019-11-18] MEDS: pravastatin 40mg tablet PO SCH (08:18)
--- NOTE | 2019-11-18 09:23 | NUR ---
Asleep respirations stable
[2019-11-18] MEDS ORDERED: ibuprofen tablet 400 MG TABLET PO ONE (12:25)
--- NOTE | 2019-11-18 14:38 | NUR ---
pt requested to lower his head down ,lowered the head of the bed ,no distress noted will cont to monitor.
--- NOTE | 2019-11-18 15:50 | NUR ---
RT at bedside for breathing tx,will cont to monitor.
--- NOTE | 2019-11-18 17:11 | NUR ---
PT RESTING IN BED AT THIS TIME,NO SIGN OF ACUTE DISTRESS NOTED,WILL CONT TO MONITOR.
--- NOTE | 2019-11-18 18:00 | NUR ---
PT RESTING IN BED QUIETLY ,WILL CONT TO MONITOR.
[2019-11-18] MEDS: NPH, human insulin isophane inj. SQ SCH (21:00)
[2019-11-19] MEDS: ipratropium 0.5 MG/2.5ML nebule IH SCH ×4 (02:00→20:00)
--- NOTE | 2019-11-19 02:41 | NUR ---
Pt. in bed, asleep. Bipap on. Appears comfortable. Even chest rise observed.
[2019-11-19] MEDS ORDERED: ibuprofen tablet 400 MG TABLET PO ONE ×2 (03:40→17:25)
--- NOTE | 2019-11-19 07:20 | NUR ---
Resting in bed with eyes closed, has cpap on
[2019-11-19] MEDS: furosemide 20MG tablet PO SCH ×2 (08:19→19:32)
[2019-11-19] MEDS: levoTHYROXINE 100mcg tablet PO SCH (08:19)
[2019-11-19] MEDS: pravastatin 40mg tablet PO SCH (08:19)
[2019-11-19] MEDS: calcium acetate 667mg (PhosLO) capsule PO SCH ×3 (08:19→17:30)
--- NOTE | 2019-11-19 08:52 | NUR ---
PAGE SEND TO WIND TURBINE TECHNICIAN REQUESTED BY [facility]
--- NOTE | 2019-11-19 10:03 | NUR ---
Patient resting with eyes closed, wearing cpap
[2019-11-19] MEDS: NPH, human insulin isophane inj. SQ SCH (21:00)
--- NOTE | 2019-11-20 03:08 | NUR ---
Pt is requesting a breathing tx with c/o of diff breathing. No signs of distress, other than continuously loud hacking coughs in attempt to clear throat. RT will give treatment in [id number].
[2019-11-20] MEDS: ipratropium 0.5 MG/2.5ML nebule IH SCH ×4 (03:32→20:56)
[2019-11-20] MEDS: furosemide 20MG tablet PO SCH ×2 (08:15→22:35)
[2019-11-20] MEDS: calcium acetate 667mg (PhosLO) capsule PO SCH ×3 (08:15→18:00)
[2019-11-20] MEDS: levoTHYROXINE 100mcg tablet PO SCH (08:15)
[2019-11-20] MEDS: pravastatin 40mg tablet PO SCH (08:16)
[2019-11-20] MEDS ORDERED: normal saline 1000ml 250 ML IV PRN (09:08)
[2019-11-20] MEDS ORDERED: heparin 1,000 units/ml 10ml inj IV ONE (09:10)
[2019-11-20] MEDS ORDERED: LIDOcaine 1% (10mg/ml) 2ml vial SQ ONE (09:10)
--- NOTE | 2019-11-20 10:01 | NUR ---
PATIENT SITTING UP IN CHAIR, NO C/O NOTED.
--- NOTE | 2019-11-20 11:41 | NUR ---
Patient resting in bed with CPAP on.
--- NOTE | 2019-11-20 12:15 | NUR ---
Up in chair, no s/sx of distress noted.
--- NOTE | 2019-11-20 13:06 | NUR ---
Patient resting up in chair eating lunch, no s/sx of distress noted.
--- NOTE | 2019-11-20 15:00 | NUR ---
PATIENT RESTING IN BED, DIALYSIS PENDING.
--- NOTE | 2019-11-20 17:00 | NUR ---
PATIENT GETTING DIALYSIS.
--- NOTE | 2019-11-20 18:52 | NUR ---
Patient getting dialysis in room 27.
--- NOTE | 2019-11-20 20:13 | NUR ---
Patient is still in dialysis. No distress observed. Continue to monitor.
[2019-11-20] MEDS: NPH, human insulin isophane inj. SQ SCH (21:00)
--- NOTE | 2019-11-20 21:05 | NUR ---
Patient is back from dialysis and getting a respiratory treatment. Continue to monitor.
[2019-11-20] MEDS ORDERED: QUEtiapine 25mg tablet PO ONE (22:40)
--- NOTE | 2019-11-20 22:43 | NUR ---
Patient reading a book and having a difficult time sleeping. RN spoke to Dr Thompson who ordered 1 x 1 Seroquel 25 mg. RN to give med. Continue to monitor.
--- NOTE | 2019-11-20 23:42 | NUR ---
Patient with bi-pap machine on but is obviously awake. Continue to monitor.
--- NOTE | 2019-11-21 02:25 | NUR ---
patient growning and making noises while resting.
--- NOTE | 2019-11-21 04:08 | NUR ---
rt at bedside
[2019-11-21] MEDS: ipratropium 0.5 MG/2.5ML nebule IH SCH ×4 (04:09→19:56)
--- NOTE | 2019-11-21 06:21 | NUR ---
PT SLEEPING QUIETLY AT THIS TIME.
[2019-11-21] MEDS: calcium acetate 667mg (PhosLO) capsule PO SCH ×3 (07:55→19:59)
[2019-11-21] MEDS: furosemide 20MG tablet PO SCH ×2 (07:55→20:01)
[2019-11-21] MEDS: levoTHYROXINE 100mcg tablet PO SCH (08:12)
[2019-11-21] MEDS ORDERED: ondansetron 4mg rapidly disintigrating tab PO ONE ×2 (08:25→13:15)
[2019-11-21] MEDS: pravastatin 40mg tablet PO SCH (08:37)
--- NOTE | 2019-11-21 13:04 | NUR ---
PT C/O NAUSEA. STATES, EVERYTIME I EAT I GET NAUSEATED. INFORMED DR. MORIN.
[2019-11-21 13:44] LABS: ALBUMIN 3.3 G/DL (3.4-5.0); ANION GAP 6 (8-16); CALCIUM 8.9 MG/DL (8.5-10.1); CHLORIDE 99 MMOL/L (99-107); CREATININE 4.82 MG/DL (0.60-1.10); GLUCOSE 128 MG/DL (70-104); SODIUM 133 MMOL/L (135-145); TOTAL CARBON DIOXIDE 28.2 MMOL/L (24-32); eGFR 12 ML/MIN
[2019-11-21 13:55] LABS: BLOOD UREA NITROGEN 34 MG/DL (7-18); BUN/CREATININE RATIO 7.1 (5.4-32.0)
--- NOTE | 2019-11-21 19:00 | NUR ---
PT SITTING UPRIGHT IN BED EATING DINNER . CALLED THIS REOCRDER TO BEDSIDE TO DISCUSS HIS EATING CONCERNS AND HIS DIGESTIVE ISSUES . PT ASKING TO HAVE PERHAPS A MECHANICAL SOFT PROTEINS WITHOUT OILS, GREESE, OR BUTTER TO HELP HIS GI UPSET WITH EVERY MEAL . DISCUSED WITH PT ALTERNATIVES FOR MEALS AND WILL PLACE A SPECAIL ORDER FOR HIS FOOD TRAYS ON 11/22/19
--- NOTE | 2019-11-21 20:23 | NUR ---
WENT TO BEDSIDE TO DISCUSS PT DIET . PT C/O NOT WANTING T EAT FOOD THAT HAVE NAY OILY FILM OR BUTTER THEY UPSET HIS STOMACH. PT REPORTS THAT RICE AND POTATOES SEEM TO ORK BETTER WITH HIS DIGESTION . PT ALSO STATES THAT MEAT PROTEINS ASIDE FROM FISH AND EGGS ALSO DON NOT SIT WELL WITH HIS BELLUY . PT DISCUSED DIET LIMITAIONS RELATED TO PT DX PROCESS. PT STATES THAT HE NEED TO FIND FOOD S THAT WORK FOR HIM HE IAS ASKING FOR MORE FRUITS AND VEGS AND IS NO OILS OR BUTTER ON HIS MEAT PORTIONS
[2019-11-21] MEDS: NPH, human insulin isophane inj. SQ SCH (21:00)
--- NOTE | 2019-11-21 21:45 | NUR ---
PT APPLIED C PAP INDEPENDENTLY TO FACE AND IS LAYING IN BED SUPINE. HOB ELEVATED 30 DEGREES . PT HAS BEEN VERY COROPORATIVE AND POLITE . IN THE DIRECT LINE OF SIGHT OF NURSING STAFF WILL CONTINUE TO MONITOR AND REASSESS NEEDED
[2019-11-21] MEDS ORDERED: quetiapine 100mg tablet PO ONE (22:45)
--- NOTE | 2019-11-21 22:45 | NUR ---
PT STATES HE WOULD LIKWE SOMETHING TO HELP HIM SLEEP . STATES THAT HE WAS MEDICATED LAST NIGHT AND WOULD LIKE TO HAVE THE SAME MEDICINE TO HELP HIM SLEEP . PT HAS APPPLIED HIS ON C PAP DEVISE AND HAS BEEN TOSSING FROM SIDE TO SIDE SPOKE WITH DR CLAROS . ORDER RECEIVED FOR 25 MG SEROQUEL X1 ORDERED
[2019-11-21] MEDS ORDERED: QUEtiapine 25mg tablet PO ONE (22:53)
--- NOTE | 2019-11-21 23:24 | NUR ---
MEDICATED PT WITH SEROQUEL 25MG PO ORDERED . PT CURRENTING RESTING IN BED SUPINE . HOB ELEVATED 30 DEGREES . PT IN THE DIRECT LINE OF SIGHT OF NURSING STAFF WILL CONTINUE TO MONITOR AND REASSESSS NEEDED
--- NOTE | 2019-11-22 00:51 | NUR ---
ASSUMED CARE FROM JOHN BENITO NO QUESTIONS OR CONCERNS AFTER ASSUMING CARE PATIENT IN BED COVERS ON EYES CLOSED RR EVEN UN LABORED NO OBSERVABLE S/S OF ACUTE STRESS AT THIS TIME WILL CONTINUE TO MONITOR, PATIENT IS USING HIS HOME C-PAP CORRECTLY
[2019-11-22] MEDS: ipratropium 0.5 MG/2.5ML nebule IH SCH ×4 (02:00→20:08)
--- NOTE | 2019-11-22 02:58 | NUR ---
PATIENT IN BED COVERS ON LYING ON SUPINE WITH C-PAP ON, EYES CLOSED RR EVEN UN LABORED NO OBSERVABLE S/S OF ACUTE STRESS AT THIS TIME WILL CONTINUE TO MONITOR
--- NOTE | 2019-11-22 05:51 | NUR ---
PATIENT IN BED SUPINE COVERS ON EYES CLOSED RR EVEN UN LABORED C-PAP ON NO OBSERVABLE S/S OF ACUTE STRESS AT THIS TIME WILL CONTINUE TO MONITOR
[2019-11-22] MEDS: furosemide 20MG tablet PO SCH ×2 (07:58→22:05)
[2019-11-22] MEDS: calcium acetate 667mg (PhosLO) capsule PO SCH ×4 (07:58→22:06)
[2019-11-22] MEDS: pravastatin 40mg tablet PO SCH (07:58)
[2019-11-22] MEDS: levoTHYROXINE 100mcg tablet PO SCH (07:58)
[2019-11-22] MEDS ORDERED: heparin 1,000 units/ml 10ml inj IV ONE (08:00)
[2019-11-22] MEDS ORDERED: normal saline 1000ml 250 ML IV PRN (08:00)
[2019-11-22] MEDS ORDERED: ondansetron 4mg rapidly disintigrating tab PO ONE (08:20)
--- NOTE | 2019-11-22 11:00 | NUR ---
PATIENT IS BEING INTERVIEWED BY [facility] AT [facility]ENT.
--- NOTE | 2019-11-22 12:29 | NUR ---
RCVD REPORT FROM THONG REECE, PT'S 5150 IS BEING UPHELD, PT IS SUPINE IN BED BIPAP ON, SLEEPING, REGULAR BREATHING PRESENT
[2019-11-22] MEDS: ondansetron 4mg rapidly disintigrating tab PO PRN (12:57)
--- NOTE | 2019-11-22 13:23 | NUR ---
PT IS SUPINE IN BED, ACCEPTING OF MEDICATIONS AND CARE, QUIETLY READING
[2019-11-22] MEDS ORDERED: ondansetron 4mg rapidly disintigrating tab PO PRN (13:35)
--- NOTE | 2019-11-22 14:00 | NUR ---
ASSUMED CARE OF PATIENT. HE IS SLEEPING WITH HIS CPAP ON
--- NOTE | 2019-11-22 16:29 | NUR ---
PT GOING TO DIALYSIS
--- NOTE | 2019-11-22 17:34 | NUR ---
PT IN DIAYLSIS
[2019-11-22] MEDS: LIDOcaine 1% (10mg/ml) 2ml vial SQ ONE ×2 (18:00→18:33)
--- NOTE | 2019-11-22 18:14 | NUR ---
PT IN DIALYSIS
--- NOTE | 2019-11-22 19:10 | NUR ---
Parish zelaya in [facility] - 11/22/19 at 1926 by AGUSTO Pt is still undergoing hemod
--- NOTE | 2019-11-22 19:26 | NUR ---
Pt is still undergoing hemodialysis
--- NOTE | 2019-11-22 20:05 | NUR ---
Pt is continuing with hemodialysis. No apparent s/s of distress noted at this time
[2019-11-22] MEDS: NPH, human insulin isophane inj. SQ SCH (20:15)
--- NOTE | 2019-11-22 21:00 | NUR ---
Pt is currently finishing hemodialysis. No apparent s/s of distress noted
--- NOTE | 2019-11-22 22:00 | NUR ---
Pt has completed HD and is returned to his room. No apparent s/s of distress noted. Pt is currently sitting up to the side of the bed eating his dinner tray. Medications administered as ordered
[2019-11-22] MEDS ORDERED: acetaminophen 325mg tablet PO ONE (22:15)
--- NOTE | 2019-11-22 23:00 | NUR ---
Pt appears to be resting comfortably in bed. No apparent s/s of symptoms
--- NOTE | 2019-11-23 | NUR ---
Pt appears to be resting comfortably in bed. No s/s of distress noted
--- NOTE | 2019-11-23 01:05 | NUR ---
Pt called nurse over asking to test his blood sugar because he is feeling like it is low. BG was 142. Pt reports that he felt dizzy and like he was hallucinating. After accucheck pt laid back down and is now lying in bed with no s/s of distress noted at this time
[2019-11-23] MEDS: ipratropium 0.5 MG/2.5ML nebule IH SCH ×4 (01:52→19:27)
--- NOTE | 2019-11-23 02:05 | NUR ---
Pt appears to be resting comfortably in bed. No s/s of distress noted
--- NOTE | 2019-11-23 03:08 | NUR ---
Pt appears to be resting comfortably in bed. No s/s of distress noted
--- NOTE | 2019-11-23 04:06 | NUR ---
Pt appears to be resting comfortably in bed. No s/s of distress noted
--- NOTE | 2019-11-23 05:01 | NUR ---
Pt appears to be resting comfortably in bed. No s/s of distress noted
--- NOTE | 2019-11-23 06:59 | NUR ---
pt resting in bed quietly ,no distress noted ,will cont to monitor.
--- NOTE | 2019-11-23 07:54 | NUR ---
pt waiting for the breakfast at this time.resting in bed quitely.
[2019-11-23] MEDS: calcium acetate 667mg (PhosLO) capsule PO SCH ×3 (08:09→20:31)
[2019-11-23] MEDS: furosemide 20MG tablet PO SCH ×2 (08:09→20:31)
[2019-11-23] MEDS: pravastatin 40mg tablet PO SCH (08:10)
[2019-11-23] MEDS: levoTHYROXINE 100mcg tablet PO SCH (08:17)
--- NOTE | 2019-11-23 08:25 | NUR ---
pt has taken his routine morning meds ,still working on his breakfast tray.denies nay concern at this time ,will cont to monitor.
--- NOTE | 2019-11-23 09:23 | NUR ---
pt laying in the bed quietly ,no concern at this time.
--- NOTE | 2019-11-23 10:30 | NUR ---
pt sleeping in bed ,with cpap ,will cont to monitor.pt rr dustin and nonlabored .
--- NOTE | 2019-11-23 12:53 | NUR ---
pt resting in bed quietly .will cont to monitor .room in front of nuses station.
--- NOTE | 2019-11-23 13:11 | NUR ---
called pharmacy for pt calcium acetate ,as per tee they will bring it to the pharmacy.
--- NOTE | 2019-11-23 13:23 | NUR ---
pt has taken his after med with food still working on lunch tray ,will cont to monitor.
--- NOTE | 2019-11-23 14:08 | NUR ---
pt finished his neb tx ,rt at bedside ,no distress noted ,will cont to monitor.
--- NOTE | 2019-11-23 15:29 | NUR ---
pt using magzine at this time,will cont to monitor. Addendum: 11/23/19 at 1531 by POLLO reading magzine at this time.no distress noted will cont to monitor.
--- NOTE | 2019-11-23 16:13 | NUR ---
Pt approached nurse's station wanting to share his plan for discharge. Pt would like to meet with the psychiatrist tomorrow and states he has a plan to leave [place]. Pt stated he has enough money to stay in a hotel for a few days, catch the train from [place] to [place], stay for a few days then move on to [place], [place]. Pt stated he has $1700 in pensions he could collect but can't as he would be unable to have dialysis without incurring the expense. Pt indicates he does not have family or friends in [place] but feels like it would be an area he can thrive in.
--- NOTE | 2019-11-23 16:35 | NUR ---
pt up in his electric wheelchair and wheeling in the hallway .
--- NOTE | 2019-11-23 17:23 | NUR ---
jessica resendiz taking vitals at this time . Addendum: 11/23/19 at 1724 by POLLO bethel mercado at bedside taking vitals.
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
[2019-11-23] MEDS: NPH, human insulin isophane inj. SQ SCH (20:44)
--- NOTE | 2019-11-23 21:53 | NUR ---
The patient is resting on his bed and is reading a book
--- NOTE | 2019-11-24 01:44 | NUR ---
The patient is awake and complaining of not being able to sleep. MD made aware and orders received.
[2019-11-24] MEDS ORDERED: LORazepam 1 MG tablet PO ONE (01:45)
[2019-11-24] MEDS: ipratropium 0.5 MG/2.5ML nebule IH SCH ×4 (02:00→20:00)
--- NOTE | 2019-11-24 02:56 | NUR ---
The patient appears to be sleeping
--- NOTE | 2019-11-24 03:57 | NUR ---
Report received and assumed care. Pt resting quietly, respirations normal, no s/s of distress.
[2019-11-24] MEDS ORDERED: LIDOcaine 1% (10mg/ml) 2ml vial SQ ONE (08:00)
[2019-11-24] MEDS ORDERED: heparin 1,000 units/ml 10ml inj IV ONE (08:00)
[2019-11-24] MEDS ORDERED: normal saline 1000ml 250 ML IV PRN (08:00)
[2019-11-24] MEDS: levoTHYROXINE 100mcg tablet PO SCH (08:36)
[2019-11-24] MEDS: furosemide 20MG tablet PO SCH ×2 (08:36→20:34)
[2019-11-24] MEDS: calcium acetate 667mg (PhosLO) capsule PO SCH ×3 (08:36→18:36)
[2019-11-24] MEDS: pravastatin 40mg tablet PO SCH (08:49)
--- NOTE | 2019-11-24 12:12 | NUR ---
pt want her skin to be checked up "he thinks its teared off" ,checked with dipesh rn .redness noted to lft side of buttocks blancble.primary nurse notified .they will change the bedding and apply barrier cream.
--- NOTE | 2019-11-24 12:37 | NUR ---
Patient in wheelchair, new sheets being put on the bed.
--- NOTE | 2019-11-24 13:10 | NUR ---
Patient sitting in wheelchair and just finished lunch. 1300 PhosLo administered with meal.
--- NOTE | 2019-11-24 14:12 | NUR ---
Patient asleep in bed with CPAP on.
--- NOTE | 2019-11-24 15:03 | NUR ---
Patient asleep in bed.
--- NOTE | 2019-11-24 16:00 | NUR ---
Patient awake in bed. Dialysis getting set up for dialysis to be started.
--- NOTE | 2019-11-24 16:26 | NUR ---
Patient in procedure room getting dialysis treatment.
--- NOTE | 2019-11-24 17:01 | NUR ---
Patient in procedure room getting dialysis.
--- NOTE | 2019-11-24 17:15 | NUR ---
1500 SVN treatment triaged.
--- NOTE | 2019-11-24 17:33 | NUR ---
Patient getting dialysis and dialysis nurse Sweta wanted the head of the bed up. I went to go raise the head of the bed, and the patient became agitated and stated "I can't have the head of the bed up any higher. I'm refusing this dialysis treatment."
--- NOTE | 2019-11-24 18:14 | NUR ---
Patient back in bed and no longer getting dialysis. Patient requested a breathing treatment and a page was sent to respiratory.
--- NOTE | 2019-11-24 19:26 | NUR ---
Emotional support provided to pt. who's refusing HD tx. He expresses that he feels hopeless d/t lack of services and his perceived low quality of life. He shares that in [place], where he's from, mental health services provide better care for pts. Pt. wishes to go back to [place] to access their resources. In regards to HD tx, pt. reports that he'd like to have it done at his outpatient facility where he is known by the staff. Inquiry made as to how we can better provide care, but pt. just appears to be agitated at this time.
[2019-11-24] MEDS: NPH, human insulin isophane inj. SQ SCH (20:23)
--- NOTE | 2019-11-24 20:30 | NUR ---
Pt. awake and resting in bed.
--- NOTE | 2019-11-24 21:30 | NUR ---
Pt. awake and resting while reading a book.
--- NOTE | 2019-11-24 22:36 | NUR ---
Pt. placed C-pap machine to prepare self to sleep, good mask placement verified. Pt. appears to be comfortable.
--- NOTE | 2019-11-24 23:30 | NUR ---
Pt. sleeping comfortably.
--- NOTE | 2019-11-25 00:30 | NUR ---
Pt. continues to sleep.
--- NOTE | 2019-11-25 01:30 | NUR ---
Pt. sleeping on supine position, per his preference, with C-pap functioning well. Appears comfortable.
--- NOTE | 2019-11-25 02:21 | NUR ---
Pt. in bed, asleep. Even chest rise apparent and c-pap continues to function well.
[2019-11-25] MEDS: ipratropium 0.5 MG/2.5ML nebule IH SCH ×2 (02:31→07:22)
[2019-11-25] MEDS ORDERED: LORazepam 1 MG tablet PO ONE (03:00)
--- NOTE | 2019-11-25 03:30 | NUR ---
Pt. woken up for breathing tx. within the last hour. He stayed awake after tx and it was apparent that he was anxious. Pt. affirms that he was feeling restless. MD made aware of this complaint by pt and N.O. received for ativan 1mg PO x1. Medication administered as ordered. Pt. resting with eyes closed at the moment.
--- NOTE | 2019-11-25 04:30 | NUR ---
Pt. resting quietly in bed. Appears to be comfortable.
[2019-11-25 05:32] VITALS: BP 153/66
--- NOTE | 2019-11-25 06:30 | NUR ---
Pt sleeping with cpap on.
[2019-11-25] MEDS: furosemide 20MG tablet PO SCH (08:22)
[2019-11-25] MEDS: pravastatin 40mg tablet PO SCH (08:22)
[2019-11-25] MEDS: calcium acetate 667mg (PhosLO) capsule PO SCH (08:22)
[2019-11-25] MEDS: levoTHYROXINE 100mcg tablet PO SCH (08:23)
[2019-11-25] MEDS: ondansetron 4mg rapidly disintigrating tab PO PRN (08:25)
--- NOTE | 2019-11-25 08:42 | NUR ---
PAGE SENT TO VISUAL INSPECTOR REQUESTED BY [facility] RE: POSSIBLE D/C PLAN
== END 2019-11-25 11:23 | disposition home or self-care (01) ==
LOC: ER 13:06
DX: F31.9 Bipolar disorder, unspecified (principal); R45.851 Suicidal ideations; J44.9 Chronic obstructive pulmonary disease, unspecified; E11.42 Type 2 diabetes mellitus with diabetic polyneuropathy; G89.29 Other chronic pain; R11.2 Nausea with vomiting, unspecified; F20.9 Schizophrenia, unspecified; F12.90 Cannabis use, unspecified, uncomplicated; E11.22 Type 2 diabetes mellitus with diabetic chronic kidney disease; N18.9 Chronic kidney disease, unspecified; Z88.5 Allergy status to narcotic agent; Z79.4 Long term (current) use of insulin; Z79.899 Other long term (current) drug therapy; Z99.2 Dependence on renal dialysis
CPT/HCPCS: 36415; 71045; 80048; 80053; 80305; 80320; 82948; 84443; 85025; 93005; 94640; 96374; 96375; 96376; 99285; J1200; J2060; J2765; 94760; J1815